=== PATIENT | male | born 1950 | race Two or more races ===

== ENCOUNTER 2017-04-21 09:37 | Inpatient (IN) | payer OTHER ==
[~2017-04-21] VITALS: Ht 165.1 cm; Wt 78.6 kg
[~2017-04-21 09:37] MED LIST: ATOR10TA OR; BUME2TAB3 PO; CARV6.2551 OR; FENO134C PO; LEVO100T8 OR; SPIR25TA89 PO; WARF2TAB49 PO; WARF5TAB PO
[2017-04-21 10:37] LABS: Basophils # (auto) 0.1 uL; Basophils % (auto) 0.9 % (0.0-2.0); DEFINITIVE VIEW TRANSMISSION; Eosinophils # (auto) 0.7 uL; Eosinophils % (auto) 9.2 % (0.0-7.0); Lymphocytes # (auto) 1.8 uL; Lymphocytes % (auto) 24.8 % (10.0-50.0); Mean Corpuscular Hemoglobin 26.5 pg (28.0-32.0); Mean Corpuscular Hgb Conc. 32.7 g/dL (32.0-36.0); Mean Corpuscular Volume 81.1 fL (80.0-100.0); Mean Platelet Volume 8.4 fL (7.4-10.4); Monocytes # (auto) 0.7 uL; Monocytes % (auto) 9.8 % (0.0-12.0); Neutrophils % (auto) 55.3 % (37.0-80.0); Platelet Count (auto) 234 10^3/uL (140-450); Red Cell Distribution Width 15.2 % (11.6-16.0); White Blood Cell 7.3 10^3/uL (4.4-10.8)
[2017-04-21 10:43] LABS: Partial Thromboplastin Time 36.6 sec (22.64-33.71)
[2017-04-21 10:46] LABS: INR 2.27 (0.9-1.15); Prothrombin Time 24.9 sec (9.37-12.3)
[2017-04-21 11:24] LABS: Calcium 8.3 mg/dL (8.5-10.1); Potassium 3.6 mmol/L (3.5-5.1)
[2017-04-21 11:26] LABS: Albumin 3.8 g/dL (3.4-5.0); BUN/Creatinine Ratio 12.8; Magnesium 2.2 mg/dL (1.6-2.6)
[2017-04-21 11:33] LABS: Bilirubin, Total 1.1 mg/dL (0.2-1.0); Total Protein 7.8 g/dL (6.4-8.2)
[2017-04-21] MEDS ORDERED: ENOXAPARIN SOD 80 MG/0.8ML SYRINGE SC ONE (12:15)
[2017-04-21 13:00] LABS: Temperature: 23.5 C (20.0-25.0)
[2017-04-21] MEDS ORDERED: LORazepam 0.5 MG TAB PO PRN (13:15)
[2017-04-21] MEDS ORDERED: PROMETHAZINE HCL 25 MG/ML 1ML IV PRN (13:15)
[2017-04-21] MEDS ORDERED: MORPHINE SULF INJ 2 MG/ML SYRINGE 1ML IV PRN ×2 (13:15)
[2017-04-21] MEDS ORDERED: HYDROcodone-ACET 5/325MG TAB PO PRN (13:15)
[2017-04-21] MEDS ORDERED: TEMAZEPAM 15 MG CAP PO PRN (13:15)
[2017-04-21] MEDS ORDERED: ASPirin 81 mg TAB PO ONE (13:15)
[2017-04-21] MEDS ORDERED: ACETAMINOPHEN 500 MG TAB PO PRN (13:15)
[2017-04-21] MEDS ORDERED: ENALAPRIL MALEATE 2.5 MG TAB PO ONE (13:15)
[2017-04-21] MEDS ORDERED: PANTOPRAZOLE 40 MG TAB PO ONE (13:15)
[2017-04-21] MEDS ORDERED: NITROGLYCERIN 0.4 MG SL TAB SL PRN (13:15)
[2017-04-21] MEDS ORDERED: LACTULOSE 20Gm/30ML SOLN PO PRN (13:15)
[2017-04-21] MEDS: SODIUM CHLORIDE 0.9% 1,000 ML IV SCH (13:33)
[2017-04-21 17:00] VITALS: BP 100/71
[2017-04-21] MEDS ORDERED: WARFARIN SODIUM 1 MG TAB PO ONE (17:00)
[2017-04-21 17:20] VITALS: BP 100/71
[2017-04-21] MEDS: CARVEDILOL 3.125 MG TAB PO SCH (21:37)
[2017-04-21] MEDS: ATORVASTATIN 20 MG TAB PO SCH (21:39)
[2017-04-21 22:00] VITALS: BP 100/66
[2017-04-22] MEDS: SODIUM CHLORIDE 0.9% 1,000 ML IV SCH (01:37)
[2017-04-22 05:00] VITALS: BP 94/63
[2017-04-22] MEDS: LEVOTHYROXINE SODIUM 100 MCG TAB PO SCH (06:07)
[2017-04-22 06:16] LABS: Partial Thromboplastin Time 38.5 sec (22.64-33.71)
[2017-04-22 06:17] LABS: INR 2.24 (0.9-1.15); Prothrombin Time 24.6 sec (9.37-12.3)
[2017-04-22 06:18] LABS: Potassium 3.4 mmol/L (3.5-5.1)
[2017-04-22 06:23] LABS: Albumin 3.3 g/dL (3.4-5.0); BUN/Creatinine Ratio 15.4; Calcium 8.3 mg/dL (8.5-10.1)
[2017-04-22 06:25] LABS: Total Protein 6.5 g/dL (6.4-8.2)
[2017-04-22 06:36] LABS: B-Type Natriuretic Peptide 870.31 pg/mL (0-100); Temperature: 22.3 C (20.0-25.0)
[2017-04-22 08:57] VITALS: BP 96/68
[2017-04-22] MEDS: ASPirin 81 mg TAB PO SCH (09:59)
[2017-04-22] MEDS: CARVEDILOL 3.125 MG TAB PO SCH ×2 (10:00→21:39)
[2017-04-22] MEDS ORDERED: BUMETANIDE (0.25MG/ML) 4 ML VIAL IV ONE (10:00)
[2017-04-22] MEDS: PANTOPRAZOLE 40 MG TAB PO SCH (10:00)
[2017-04-22] MEDS ORDERED: POTASSIUM CHL 20 Meq TABLET PO ONE (10:00)
[2017-04-22] MEDS ORDERED: ENALAPRIL MALEATE 2.5 MG TAB PO SCH (10:00)
[2017-04-22 13:41] VITALS: BP 119/84
[2017-04-22] MEDS ORDERED: WARFARIN SODIUM 1 MG TAB PO ONE (17:00)
[2017-04-22 17:27] VITALS: BP 100/69
[2017-04-22] MEDS: ATORVASTATIN 20 MG TAB PO SCH (21:43)
[2017-04-22 22:00] VITALS: BP 97/66
[2017-04-22] MEDS: TEMAZEPAM 15 MG CAP PO PRN (22:35)
[2017-04-23 05:00] VITALS: BP 104/69
[2017-04-23 05:56] LABS: Partial Thromboplastin Time 36.2 sec (22.64-33.71)
[2017-04-23 05:57] LABS: INR 2.09 (0.9-1.15)
[2017-04-23] MEDS: LEVOTHYROXINE SODIUM 100 MCG TAB PO SCH (06:14)
[2017-04-23 06:22] LABS: BUN/Creatinine Ratio 15.1; Calcium 8.5 mg/dL (8.5-10.1); Potassium 3.8 mmol/L (3.5-5.1)
[2017-04-23 09:00] VITALS: BP 103/70
[2017-04-23] MEDS ORDERED: BUMETANIDE 1 MG TAB PO ONE (10:15)
[2017-04-23] MEDS: PANTOPRAZOLE 40 MG TAB PO SCH (11:10)
[2017-04-23] MEDS: ASPirin 81 mg TAB PO SCH (11:10)
[2017-04-23] MEDS: CARVEDILOL 3.125 MG TAB PO SCH ×2 (11:10→21:43)
[2017-04-23 12:40] VITALS: BP 110/70
[2017-04-23] MEDS: DOBUTamine 1000MCG/ML 250 ML IV SCH ×2 (15:23→23:42)
[2017-04-23 16:22] VITALS: BP 109/54
[2017-04-23] MEDS ORDERED: WARFARIN SODIUM 1 MG TAB PO ONE (17:00)
[2017-04-23] MEDS: ATORVASTATIN 20 MG TAB PO SCH (21:43)
[2017-04-23] MEDS: TEMAZEPAM 15 MG CAP PO PRN (22:21)
[2017-04-23 22:59] VITALS: BP 100/69
[2017-04-24 05:00] VITALS: BP 92/54
[2017-04-24 05:22] LABS: Partial Thromboplastin Time 37.5 sec (22.64-33.71)
[2017-04-24 05:24] LABS: INR 2.05 (0.9-1.15); Prothrombin Time 22.5 sec (9.37-12.3)
[2017-04-24 05:28] LABS: BUN/Creatinine Ratio 16.1; Calcium 8.3 mg/dL (8.5-10.1); Potassium 3.1 mmol/L (3.5-5.1)
[2017-04-24] MEDS: LEVOTHYROXINE SODIUM 100 MCG TAB PO SCH (05:57)
[2017-04-24 09:00] VITALS: BP 105/71
[2017-04-24] MEDS ORDERED: ENALAPRIL MALEATE 2.5 MG TAB PO SCH (10:00)
[2017-04-24] MEDS: ASPirin 81 mg TAB PO SCH (10:32)
[2017-04-24] MEDS: PANTOPRAZOLE 40 MG TAB PO SCH (10:33)
[2017-04-24] MEDS: DOBUTamine 1000MCG/ML 250 ML IV SCH ×2 (10:33→21:17)
[2017-04-24] MEDS: BUMETANIDE 1 MG TAB PO SCH (10:33)
[2017-04-24] MEDS: CARVEDILOL 3.125 MG TAB PO SCH ×2 (10:33→21:23)
[2017-04-24] MEDS ORDERED: POTASSIUM CHL 20 Meq TABLET PO ONE (11:45)
[2017-04-24 13:00] VITALS: BP 93/69
[2017-04-24 16:39] VITALS: BP 96/64
[2017-04-24] MEDS ORDERED: WARFARIN SODIUM 2.5 MG TAB PO ONE (17:00)
[2017-04-24] MEDS: TEMAZEPAM 15 MG CAP PO PRN (21:24)
[2017-04-24] MEDS: ATORVASTATIN 20 MG TAB PO SCH (21:24)
[2017-04-24 22:00] VITALS: BP 101/68
[2017-04-25 05:00] VITALS: BP 104/74
[2017-04-25 06:03] LABS: Basophils # (auto) 0 uL; Basophils % (auto) 0.5 % (0.0-2.0); DEFINITIVE VIEW TRANSMISSION; Eosinophils # (auto) 0.4 uL; Eosinophils % (auto) 6.4 % (0.0-7.0); Hemoglobin 12.6 g/dL (13.5-17.5); Lymphocytes # (auto) 1.6 uL; Lymphocytes % (auto) 23.5 % (10.0-50.0); Mean Corpuscular Hemoglobin 26.6 pg (28.0-32.0); Mean Corpuscular Hgb Conc. 33.1 g/dL (32.0-36.0); Mean Corpuscular Volume 80.3 fL (80.0-100.0); Mean Platelet Volume 8.9 fL (7.4-10.4); Monocytes # (auto) 0.7 uL; Monocytes % (auto) 10.7 % (0.0-12.0); Neutrophils # (auto) 4.1 uL; Neutrophils % (auto) 58.9 % (37.0-80.0); Platelet Count (auto) 186 10^3/uL (140-450); Red Cell Distribution Width 15.7 % (11.6-16.0); White Blood Cell 6.9 10^3/uL (4.4-10.8)
[2017-04-25 06:18] LABS: Partial Thromboplastin Time 36.2 sec (22.64-33.71)
[2017-04-25 06:20] LABS: INR 2.02 (0.9-1.15); Prothrombin Time 22.2 sec (9.37-12.3)
[2017-04-25] MEDS: LEVOTHYROXINE SODIUM 100 MCG TAB PO SCH (06:21)
[2017-04-25 06:27] LABS: Albumin 3.1 g/dL (3.4-5.0); Calcium 8.4 mg/dL (8.5-10.1); Magnesium 2.1 mg/dL (1.6-2.6); Potassium 3.9 mmol/L (3.5-5.1)
[2017-04-25 06:43] LABS: Bilirubin, Total 0.8 mg/dL (0.2-1.0); Total Protein 6.4 g/dL (6.4-8.2)
[2017-04-25 08:26] VITALS: BP 109/74
[2017-04-25] MEDS: DOBUTamine 1000MCG/ML 250 ML IV SCH ×2 (09:44→19:56)
[2017-04-25] MEDS: CARVEDILOL 3.125 MG TAB PO SCH ×2 (10:34→22:12)
[2017-04-25] MEDS: ASPirin 81 mg TAB PO SCH (10:34)
[2017-04-25] MEDS: PANTOPRAZOLE 40 MG TAB PO SCH (10:36)
[2017-04-25] MEDS: BUMETANIDE 1 MG TAB PO SCH (10:37)
[2017-04-25 12:30] VITALS: BP 101/72
[2017-04-25] MEDS ORDERED: WARFARIN SODIUM 2 MG TAB PO ONE (17:00)
[2017-04-25 17:23] VITALS: BP 90/56
[2017-04-25 20:00] VITALS: BP 100/61
[2017-04-25 21:56] VITALS: BP 100/61
[2017-04-25] MEDS: ENALAPRIL MALEATE 2.5 MG TAB PO SCH (22:11)
[2017-04-25] MEDS: ATORVASTATIN 20 MG TAB PO SCH (22:12)
[2017-04-25] MEDS: TEMAZEPAM 15 MG CAP PO PRN (22:12)
[2017-04-26 05:25] VITALS: BP 96/69
[2017-04-26 05:54] LABS: Partial Thromboplastin Time 37.7 sec (22.64-33.71)
[2017-04-26 05:57] LABS: INR 2.54 (0.9-1.15); Prothrombin Time 27.9 sec (9.37-12.3)
[2017-04-26] MEDS: LEVOTHYROXINE SODIUM 100 MCG TAB PO SCH (06:14)
[2017-04-26] MEDS: DOBUTamine 1000MCG/ML 250 ML IV SCH ×3 (06:14→22:37)
[2017-04-26 08:00] VITALS: BP 96/65
[2017-04-26 09:42] VITALS: BP 94/64
[2017-04-26] MEDS: BUMETANIDE 1 MG TAB PO SCH (10:05)
[2017-04-26] MEDS: PANTOPRAZOLE 40 MG TAB PO SCH (10:06)
[2017-04-26] MEDS: ENALAPRIL MALEATE 2.5 MG TAB PO SCH ×2 (10:07→22:37)
[2017-04-26] MEDS: ASPirin 81 mg TAB PO SCH (10:08)
[2017-04-26] MEDS: CARVEDILOL 3.125 MG TAB PO SCH ×2 (10:08→22:36)
[2017-04-26 13:00] VITALS: BP 89/60
[2017-04-26] MEDS ORDERED: WARFARIN SODIUM 2 MG TAB PO ONE (17:00)
[2017-04-26 17:09] VITALS: BP 95/64
[2017-04-26 22:00] VITALS: BP 105/69
[2017-04-26] MEDS: ATORVASTATIN 20 MG TAB PO SCH (22:36)
[2017-04-26] MEDS: TEMAZEPAM 15 MG CAP PO PRN (22:38)
[2017-04-27 05:18] VITALS: BP 84/58
[2017-04-27] MEDS: LEVOTHYROXINE SODIUM 100 MCG TAB PO SCH (06:28)
[2017-04-27 06:36] LABS: Partial Thromboplastin Time 40.6 sec (22.64-33.71)
[2017-04-27 06:38] LABS: INR 3.47 (0.9-1.15); Prothrombin Time 38.3 sec (9.37-12.3)
[2017-04-27 06:39] LABS: Calcium 8.8 mg/dL (8.5-10.1); Potassium 3.7 mmol/L (3.5-5.1)
[2017-04-27 06:41] LABS: BUN/Creatinine Ratio 16.3
[2017-04-27] MEDS: BUMETANIDE 1 MG TAB PO SCH (09:29)
[2017-04-27] MEDS: CARVEDILOL 3.125 MG TAB PO SCH (09:30)
[2017-04-27] MEDS: ASPirin 81 mg TAB PO SCH (09:30)
[2017-04-27] MEDS: PANTOPRAZOLE 40 MG TAB PO SCH (09:31)
[2017-04-27 09:34] VITALS: BP 92/65
[2017-04-27] MEDS: ENALAPRIL MALEATE 2.5 MG TAB PO SCH (09:35)
[2017-04-27 12:54] VITALS: BP 90/64
[2017-04-27 14:15] VITALS: BP 90/64
== END 2017-04-27 14:00 | disposition home or self-care (01) | DRG 291 ==
LOC: ER 09:37 → TELE 09:38 → TELE-CENTR 16:48
PROVIDERS: ADMIT Internal Medicine; ATTEND Internal Medicine
DX: I13.0 Hypertensive heart and chronic kidney disease with heart failure and stage 1 through stage 4 chronic kidney disease, or unspecified chronic kidney disease (principal); I50.23 Acute on chronic systolic (congestive) heart failure; N17.9 Acute kidney failure, unspecified; I25.10 Atherosclerotic heart disease of native coronary artery without angina pectoris; N18.3 Chronic kidney disease, stage 3 (moderate); E78.5 Hyperlipidemia, unspecified; E03.9 Hypothyroidism, unspecified; I25.5 Ischemic cardiomyopathy; E86.0 Dehydration; Z80.0 Family history of malignant neoplasm of digestive organs; Z88.8 Allergy status to other drugs, medicaments and biological substances; I25.2 Old myocardial infarction; Z95.810 Presence of automatic (implantable) cardiac defibrillator; Z79.01 Long term (current) use of anticoagulants; Z71.89 Other specified counseling
CPT/HCPCS: 36415; 71020; 80048; 80053; 82150; 83690; 83735; 83880; 84443; 84484; 85025; 85379; 85610; 85730; 86141; 93005; 96372

== ENCOUNTER → 2017-06-17 | Outpatient (CLI) | payer OTHER ==
[2017-06-17 11:07] VITALS: BP 97/65
[2017-06-17 16:57] LABS: INR 2.2 (0.7-1.3); Prothrombin Time 26.2 sec (9.0-12.0)
== END | disposition home or self-care (01) ==
LOC: CHF HDHVI 10:39
PROVIDERS: ATTEND Internal Medicine Cardiovascular Disease
DX: I50.9 Heart failure, unspecified (principal); I48.91 Unspecified atrial fibrillation; E03.9 Hypothyroidism, unspecified
CPT/HCPCS: 85610; 93701; G0463

== ENCOUNTER → 2018-05-18 | Outpatient (CLI) | payer OTHER ==
[2018-05-18] VITALS (11 sets, daily range): BP systolic 85–95; BP diastolic 54–67
[~2018-05-18] MED LIST changes: +ATOR20TA50 PO; +BUM1T PO; +CARV3.1240 PO; +CHOL20007 PO; +IVAB1.7T PO; +LEVO88TA4 PO; +MILRINONE 20MG/100ML 100 ML IV ONE; +MILRINONE 20MG/100ML 100 ML IV SCH; +SACU1TAB PO; +WARF1TAB36 PO
[2018-05-18 12:11] LABS: Hemoglobin 15.2 g/dL (13.5-17.5); Mean Corpuscular Hemoglobin 27.1 pg (28.0-32.0); Mean Corpuscular Volume 82.1 fL (80.0-100.0); Platelet Count (auto) 228 10^3/uL (140-450); Red Cell Distribution Width 14.6 % (11.8-14.3); White Blood Cell 5.3 10^3/uL (4.4-10.8)
[2018-05-18 12:31] LABS: BUN/Creatinine Ratio 17.6; Calcium 8.5 mg/dL (8.5-10.1); Potassium 3.7 mmol/L (3.5-5.1)
[2018-05-18 12:44] LABS: Band Neutrophils % (manual) 0; Basophils % (manual) 0 (0.0-2.0); Blast Cells 0; Metamyelocytes % 0; Myelocytes % 0; Promyelocytes % 0
[2018-05-18 13:14] LABS: Eosinophils % (manual) 5 (0-7); Lymphocytes % (manual) 39 (10.0-50.0); Monocytes % (manual) 10 (0-12); Reactive Lymphocytes 1
== END | disposition home or self-care (01) ==
LOC: CHF HDHVI 08:05
PROVIDERS: ATTEND Internal Medicine Cardiovascular Disease
DX: I13.0 Hypertensive heart and chronic kidney disease with heart failure and stage 1 through stage 4 chronic kidney disease, or unspecified chronic kidney disease (principal); I50.23 Acute on chronic systolic (congestive) heart failure; N18.3 Chronic kidney disease, stage 3 (moderate); D51.9 Vitamin B12 deficiency anemia, unspecified; I42.0 Dilated cardiomyopathy; E87.70 Fluid overload, unspecified; E87.6 Hypokalemia; E03.9 Hypothyroidism, unspecified; E78.5 Hyperlipidemia, unspecified; I48.91 Unspecified atrial fibrillation; I25.10 Atherosclerotic heart disease of native coronary artery without angina pectoris; Z79.01 Long term (current) use of anticoagulants; Z79.899 Other long term (current) drug therapy; Z95.810 Presence of automatic (implantable) cardiac defibrillator
CPT/HCPCS: 36415; 80048; 83880; 85007; 85027; 85610; 96365; 96366; G0463; J2260

== ENCOUNTER → 2018-05-29 | Outpatient (CLI) | payer OTHER ==
[2018-05-29] VITALS (11 sets, daily range): BP systolic 81–96; BP diastolic 51–68
[~2018-05-29] MED LIST changes: +ALPR0.5T PO; +POTA20TA53 PO; +POTA95TA2 PO; +SPIR25TA8 PO; -SPIR25TA89 PO
[2018-05-29 12:58] LABS: Potassium 3.7 mmol/L (3.5-5.1)
== END | disposition home or self-care (01) ==
LOC: CHF HDHVI 08:10
PROVIDERS: ATTEND Internal Medicine Cardiovascular Disease
DX: I13.0 Hypertensive heart and chronic kidney disease with heart failure and stage 1 through stage 4 chronic kidney disease, or unspecified chronic kidney disease (principal); I50.23 Acute on chronic systolic (congestive) heart failure; N18.3 Chronic kidney disease, stage 3 (moderate); E87.70 Fluid overload, unspecified; D51.9 Vitamin B12 deficiency anemia, unspecified; I25.10 Atherosclerotic heart disease of native coronary artery without angina pectoris; I48.91 Unspecified atrial fibrillation; E78.5 Hyperlipidemia, unspecified; E03.9 Hypothyroidism, unspecified; Z79.01 Long term (current) use of anticoagulants; Z79.899 Other long term (current) drug therapy; Z95.810 Presence of automatic (implantable) cardiac defibrillator; Z87.891 Personal history of nicotine dependence
CPT/HCPCS: 36415; 82565; 83880; 84132; 84520; 85610; 96365; 96366; G0463; J2260

== ENCOUNTER → 2018-06-01 | Outpatient (CLI) | payer OTHER ==
[2018-06-01] VITALS (12 sets, daily range): BP systolic 85–95; BP diastolic 51–64
[~2018-06-01] MED LIST changes: +DOBUTamine 1000MCG/ML 250 ML IV ONE; -MILRINONE 20MG/100ML 100 ML IV ONE; -MILRINONE 20MG/100ML 100 ML IV SCH; -SPIR25TA8 PO; +SPIR25TA89 PO
[2018-06-01 11:59] LABS: Potassium 3.6 mmol/L (3.5-5.1)
== END | disposition home or self-care (01) ==
LOC: CHF HDHVI 08:06
PROVIDERS: ATTEND Internal Medicine Cardiovascular Disease
DX: I13.0 Hypertensive heart and chronic kidney disease with heart failure and stage 1 through stage 4 chronic kidney disease, or unspecified chronic kidney disease (principal); I50.43 Acute on chronic combined systolic (congestive) and diastolic (congestive) heart failure; N18.3 Chronic kidney disease, stage 3 (moderate); R94.4 Abnormal results of kidney function studies; E87.6 Hypokalemia; I48.91 Unspecified atrial fibrillation; I25.110 Atherosclerotic heart disease of native coronary artery with unstable angina pectoris; E78.5 Hyperlipidemia, unspecified; E03.9 Hypothyroidism, unspecified; Z79.01 Long term (current) use of anticoagulants; Z79.899 Other long term (current) drug therapy; Z87.891 Personal history of nicotine dependence; Z95.810 Presence of automatic (implantable) cardiac defibrillator
CPT/HCPCS: 36415; 82565; 83880; 84132; 84520; 96365; 96366; G0463; J1250

== ENCOUNTER → 2018-06-05 | Outpatient (CLI) | payer OTHER ==
[2018-06-05] VITALS (7 sets, daily range): BP systolic 93–106; BP diastolic 59–68
[~2018-06-05] MED LIST changes: +MILRINONE 20MG/100ML 0 ML IV ONE; +SPIR25TA8 PO; -SPIR25TA89 PO
[2018-06-05 12:21] LABS: Potassium 3.9 mmol/L (3.5-5.1)
== END | disposition home or self-care (01) ==
LOC: CHF HDHVI 08:11
PROVIDERS: ATTEND Internal Medicine Cardiovascular Disease
DX: E87.6 Hypokalemia (principal); R94.4 Abnormal results of kidney function studies; I50.23 Acute on chronic systolic (congestive) heart failure
CPT/HCPCS: 36415; 82565; 83880; 84132; 84520; 96365; 96366; G0463; J1250

== ENCOUNTER → 2018-06-12 | Outpatient (CLI) | payer OTHER ==
[2018-06-12] VITALS (9 sets, daily range): BP systolic 93–105; BP diastolic 58–67
[~2018-06-12] MED LIST changes: -MILRINONE 20MG/100ML 0 ML IV ONE
[2018-06-12 12:19] LABS: Basophils # (auto) 0.1 uL; Basophils % (auto) 1.3 % (0.0-2.0); Eosinophils # (auto) 0.4 uL; Eosinophils % (auto) 7.7 % (0.0-7.0); Hematocrit 44.7 % (41.0-53.0); Hemoglobin 15.1 g/dL (13.5-17.5); Mean Corpuscular Hemoglobin 27.9 pg (28.0-32.0); Mean Corpuscular Hgb Conc. 33.7 g/dL (32.0-36.0); Mean Corpuscular Volume 82.9 fL (80.0-100.0); Monocytes # (auto) 0.5 uL; Monocytes % (auto) 9.8 % (0.0-12.0); Neutrophils # (auto) 3.1 uL; Neutrophils % (auto) 61.2 % (37.0-80.0); Nucleated Red Blood Cells % 0.6 %; Platelet Count (auto) 189 10^3/uL (140-450); Red Blood Cells 5.39 10^6/uL (4.5-5.90); Red Cell Distribution Width 15.1 % (11.8-14.3); White Blood Cell 5.1 10^3/uL (4.4-10.8)
[2018-06-12 12:35] LABS: BUN/Creatinine Ratio 18.5; Calcium 8.6 mg/dL (8.5-10.1); Magnesium 1.9 mg/dL (1.6-2.6)
[2018-06-12 13:20] LABS: Potassium 2.7 mmol/L (3.5-5.1)
== END | disposition home or self-care (01) ==
LOC: CHF HDHVI 08:00
PROVIDERS: ATTEND Internal Medicine Cardiovascular Disease
DX: I50.23 Acute on chronic systolic (congestive) heart failure (principal); E83.40 Disorders of magnesium metabolism, unspecified; D51.9 Vitamin B12 deficiency anemia, unspecified; D64.9 Anemia, unspecified
CPT/HCPCS: 36415; 80048; 82607; 83735; 83880; 85025; 85610; 96365; 96366; G0463; J1250

== ENCOUNTER → 2018-06-14 | Outpatient (CLI) | payer OTHER ==
[~2018-06-14] VITALS: Ht 30.5 cm; Wt 0.5 kg
[~2018-06-14] MED LIST changes: -DOBUTamine 1000MCG/ML 250 ML IV ONE; +LIDOCAINE 1% (LOCAL ANESTH.) PF 5ml SDV ID ONE; +SODIUM CHLOR 0.9% PF (SALINE LOCK) 10ML VIAL/SYR IV SCH; -SPIR25TA8 PO; +SPIR25TA89 PO
== END | disposition home or self-care (01) ==
LOC: XYW 13:39
PROVIDERS: ATTEND Internal Medicine Cardiovascular Disease
DX: Z45.2 Encounter for adjustment and management of vascular access device (principal); I50.9 Heart failure, unspecified; J98.9 Respiratory disorder, unspecified; Z87.891 Personal history of nicotine dependence; Z82.3 Family history of stroke; Z82.5 Family history of asthma and other chronic lower respiratory diseases; Z80.0 Family history of malignant neoplasm of digestive organs; Z82.61 Family history of arthritis; Z88.8 Allergy status to other drugs, medicaments and biological substances
CPT/HCPCS: 36569; 71045

== ENCOUNTER → 2018-06-14 | Outpatient (CLI) | payer OTHER ==
[~2018-06-14] MED LIST changes: -LIDOCAINE 1% (LOCAL ANESTH.) PF 5ml SDV ID ONE; -SODIUM CHLOR 0.9% PF (SALINE LOCK) 10ML VIAL/SYR IV SCH
== END | disposition home or self-care (01) ==
LOC: LAB 13:10
PROVIDERS: ATTEND Internal Medicine Cardiovascular Disease
DX: R79.1 Abnormal coagulation profile (principal); I13.0 Hypertensive heart and chronic kidney disease with heart failure and stage 1 through stage 4 chronic kidney disease, or unspecified chronic kidney disease; N18.3 Chronic kidney disease, stage 3 (moderate); I50.23 Acute on chronic systolic (congestive) heart failure; E03.9 Hypothyroidism, unspecified; E78.5 Hyperlipidemia, unspecified
CPT/HCPCS: 85610

== ENCOUNTER → 2018-06-15 | Outpatient (CLI) | payer OTHER ==
[~2018-06-15] VITALS: Ht 30.5 cm; Wt 72.3 kg
[2018-06-15] VITALS (7 sets, daily range): BP systolic 91–109; BP diastolic 57–73
[~2018-06-15] MED LIST changes: +DOBUTamine 1000MCG/ML 250 ML IV ONE; +DOBUTamine 1000MCG/ML 250 ML IV SCH; +SPIR25TA8 PO; -SPIR25TA89 PO
[2018-06-15 12:57] LABS: Potassium 3.5 mmol/L (3.5-5.1)
[2018-06-15 16:11] LABS: Hepatitis B Surface Antibody Negative
[2018-06-15 16:50] LABS: Hepatitis A Total Antibody Positive
[2018-06-20 15:36] LABS: Hepatitis B Core Total AB Negative; Hepatitis C Antibody Negative (Negative)
[2018-06-22 22:03] LABS: Hepatitis B Surface Antigen Negative (Negative)
== END | disposition home or self-care (01) ==
LOC: CHF HDHVI 10:18
PROVIDERS: ATTEND Internal Medicine Cardiovascular Disease
DX: I13.0 Hypertensive heart and chronic kidney disease with heart failure and stage 1 through stage 4 chronic kidney disease, or unspecified chronic kidney disease (principal); N18.3 Chronic kidney disease, stage 3 (moderate); I50.23 Acute on chronic systolic (congestive) heart failure; R94.4 Abnormal results of kidney function studies; E87.6 Hypokalemia; I25.709 Atherosclerosis of coronary artery bypass graft(s), unspecified, with unspecified angina pectoris; E78.5 Hyperlipidemia, unspecified; E03.9 Hypothyroidism, unspecified; I48.91 Unspecified atrial fibrillation; Z94.1 Heart transplant status; Z87.891 Personal history of nicotine dependence; Z79.01 Long term (current) use of anticoagulants; Z79.899 Other long term (current) drug therapy; Z95.810 Presence of automatic (implantable) cardiac defibrillator
CPT/HCPCS: 36415; 82565; 83880; 84132; 84520; 86703; 86704; 86706; 86708; 86803; 87340; 96365; 96366; G0463; J1250; J1642

== ENCOUNTER → 2018-06-19 | Outpatient (CLI) | payer OTHER ==
[2018-06-19] VITALS (10 sets, daily range): BP systolic 82–96; BP diastolic 55–62
[~2018-06-19] MED LIST changes: +BUMETANIDE (0.25MG/ML) 4 ML VIAL IV ONE; +BUMETANIDE (0.25MG/ML) 4 ML VIAL ONE; +DOBUTamine 1000MCG/ML 0 ML IV ONE; -DOBUTamine 1000MCG/ML 250 ML IV ONE; -DOBUTamine 1000MCG/ML 250 ML IV SCH; +MILRINONE 20MG/100ML 0 ML IV ONE; +MILRINONE 20MG/100ML 100 ML IV ONE; +MILRINONE 20MG/100ML 100 ML IV SCH
[2018-06-19 10:02] LABS: Potassium 3.3 mmol/L (3.5-5.1)
[2018-06-20 09:01] LABS: Protein, Urine 7.6 mg/dL (0.0-11.9)
[2018-06-20 09:32] LABS: 24 Hr. Total Protein, Urine 125.4 mg/24 Hr (<149.1); Creatinine Clearance, Urine 35.42 mL/min (75-115)
== END | disposition home or self-care (01) ==
LOC: CHF HDHVI 07:59
PROVIDERS: ATTEND Internal Medicine Cardiovascular Disease
DX: E87.6 Hypokalemia (principal); R94.4 Abnormal results of kidney function studies; Z94.1 Heart transplant status; I50.23 Acute on chronic systolic (congestive) heart failure
CPT/HCPCS: 36415; 82565; 82575; 83880; 84132; 84156; 84520; 86850; 86900; 86901; 93005; 96365; 96366; 96375; G0463; J1642; J2260; J3490

== ENCOUNTER → 2018-06-21 | Outpatient (CLI) | payer OTHER ==
[2018-06-21] VITALS (10 sets, daily range): BP systolic 77–93; BP diastolic 53–70
[~2018-06-21] MED LIST changes: -BUMETANIDE (0.25MG/ML) 4 ML VIAL IV ONE; -BUMETANIDE (0.25MG/ML) 4 ML VIAL ONE; -DOBUTamine 1000MCG/ML 0 ML IV ONE; +DOBUTamine 1000MCG/ML 250 ML IV ONE; -MILRINONE 20MG/100ML 0 ML IV ONE; -MILRINONE 20MG/100ML 100 ML IV ONE; -MILRINONE 20MG/100ML 100 ML IV SCH; +SODIUM CHLORIDE 0.9% 250 ML IV ONE
[2018-06-21 12:46] LABS: Potassium 3.8 mmol/L (3.5-5.1)
== END | disposition home or self-care (01) ==
LOC: Rad HDHVI 08:03
PROVIDERS: ATTEND Internal Medicine Cardiovascular Disease
DX: I13.0 Hypertensive heart and chronic kidney disease with heart failure and stage 1 through stage 4 chronic kidney disease, or unspecified chronic kidney disease (principal); R94.4 Abnormal results of kidney function studies; N18.3 Chronic kidney disease, stage 3 (moderate); I50.43 Acute on chronic combined systolic (congestive) and diastolic (congestive) heart failure; E03.9 Hypothyroidism, unspecified; E87.6 Hypokalemia; I95.9 Hypotension, unspecified; R07.9 Chest pain, unspecified; E78.5 Hyperlipidemia, unspecified; I48.91 Unspecified atrial fibrillation; I25.110 Atherosclerotic heart disease of native coronary artery with unstable angina pectoris; Z95.810 Presence of automatic (implantable) cardiac defibrillator; Z79.01 Long term (current) use of anticoagulants; Z87.891 Personal history of nicotine dependence
CPT/HCPCS: 36415; 71046; 82565; 83880; 84132; 84520; 96365; 96366; G0463; J1250; J7050; 96361; J1642

== ENCOUNTER → 2018-06-23 | Outpatient (CLI) | payer OTHER ==
[2018-06-23] VITALS (9 sets, daily range): BP systolic 82–91; BP diastolic 55–71
[~2018-06-23] VITALS: Ht 30.5 cm; Wt 73.3 kg
[~2018-06-23] MED LIST changes: +BUMETANIDE (0.25MG/ML) 4 ML VIAL IV ONE; +BUMETANIDE (0.25MG/ML) 4 ML VIAL ONE; -SODIUM CHLORIDE 0.9% 250 ML IV ONE
== END | disposition home or self-care (01) ==
LOC: CHF HDHVI 08:06
PROVIDERS: ATTEND Internal Medicine Cardiovascular Disease
DX: I13.0 Hypertensive heart and chronic kidney disease with heart failure and stage 1 through stage 4 chronic kidney disease, or unspecified chronic kidney disease (principal); I50.43 Acute on chronic combined systolic (congestive) and diastolic (congestive) heart failure; N18.3 Chronic kidney disease, stage 3 (moderate); I48.91 Unspecified atrial fibrillation; I25.110 Atherosclerotic heart disease of native coronary artery with unstable angina pectoris; E78.5 Hyperlipidemia, unspecified; E03.9 Hypothyroidism, unspecified; Z79.01 Long term (current) use of anticoagulants; Z79.899 Other long term (current) drug therapy; Z95.810 Presence of automatic (implantable) cardiac defibrillator; Z87.891 Personal history of nicotine dependence; Z98.61 Coronary angioplasty status
CPT/HCPCS: 96365; 96366; 96375; G0463; J1250; J1642; J3490

== ENCOUNTER → 2018-06-26 | Outpatient (CLI) | payer OTHER ==
[~2018-06-26] VITALS: Ht 30.5 cm; Wt 73.5 kg
[2018-06-26] VITALS (8 sets, daily range): BP systolic 89–96; BP diastolic 60–68
[~2018-06-26] MED LIST changes: -BUMETANIDE (0.25MG/ML) 4 ML VIAL IV ONE; -BUMETANIDE (0.25MG/ML) 4 ML VIAL ONE; +DOBUTamine 1000MCG/ML 100 ML IV ONE
== END | disposition home or self-care (01) ==
LOC: CHF HDHVI 08:19
PROVIDERS: ATTEND Internal Medicine Cardiovascular Disease
DX: I13.0 Hypertensive heart and chronic kidney disease with heart failure and stage 1 through stage 4 chronic kidney disease, or unspecified chronic kidney disease (principal); N18.3 Chronic kidney disease, stage 3 (moderate); I50.43 Acute on chronic combined systolic (congestive) and diastolic (congestive) heart failure; E78.5 Hyperlipidemia, unspecified; E03.9 Hypothyroidism, unspecified; I48.91 Unspecified atrial fibrillation; I25.119 Atherosclerotic heart disease of native coronary artery with unspecified angina pectoris; Z79.01 Long term (current) use of anticoagulants; Z87.891 Personal history of nicotine dependence; Z95.810 Presence of automatic (implantable) cardiac defibrillator; Z94.1 Heart transplant status; Z79.899 Other long term (current) drug therapy
CPT/HCPCS: 96365; 96366; G0463; J1250; J1642

== ENCOUNTER 2018-06-27 23:12 | Emergency (ER) | payer OTHER ==
[~2018-06-27] VITALS: Ht 165.1 cm; Wt 73.3 kg
[~2018-06-27 23:12] MED LIST changes: -ALPR0.5T PO; -DOBUTamine 1000MCG/ML 100 ML IV ONE; -DOBUTamine 1000MCG/ML 250 ML IV ONE; -POTA20TA53 PO; -POTA95TA2 PO; -SPIR25TA8 PO; +SPIR25TA89 PO
[2018-06-28 00:34] LABS: Eosinophils # (auto) 0.4 uL; Hemoglobin 14.1 g/dL (13.5-17.5); Nucleated Red Blood Cells % 0.1 %
[2018-06-28 00:35] LABS: Basophils # (auto) 0 uL; Basophils % (auto) 0.7 % (0.0-2.0); Eosinophils % (auto) 6.7 % (0.0-7.0); Hematocrit 43.6 % (41.0-53.0); Lymphocytes # (auto) 1.4 uL; Lymphocytes % (auto) 24.7 % (10.0-50.0); Mean Corpuscular Hemoglobin 26.4 pg (28.0-32.0); Mean Corpuscular Hgb Conc. 32.4 g/dL (32.0-36.0); Mean Corpuscular Volume 81.4 fL (80.0-100.0); Monocytes # (auto) 0.6 uL; Monocytes % (auto) 11.4 % (0.0-12.0); Neutrophils # (auto) 3.2 uL; Neutrophils % (auto) 56.5 % (37.0-80.0); Platelet Count (auto) 193 10^3/uL (140-450); Red Blood Cells 5.35 10^6/uL (4.5-5.90); White Blood Cell 5.7 10^3/uL (4.4-10.8)
[2018-06-28 00:49] LABS: INR 3.1 (0.9-1.15); Partial Thromboplastin Time 34.5 sec (23.78-33.04); Prothrombin Time 31.1 sec (9.27-12.13)
[2018-06-28 00:50] LABS: Albumin 3.2 g/dL (3.4-5.0); BUN/Creatinine Ratio 17.8; Calcium 8.3 mg/dL (8.5-10.1); Magnesium 2.2 mg/dL (1.6-2.6); Potassium 3.4 mmol/L (3.5-5.1)
[2018-06-28 00:55] LABS: Bilirubin, Total 0.9 mg/dL (0.2-1.0); Total Protein 6.5 g/dL (6.4-8.2)
[2018-06-28 01:23] VITALS: BP 93/65
[2018-07-07] MEDS ORDERED: POTA95TA2 PO (14:50)
[2018-07-07] MEDS ORDERED: POTA20TA53 PO (14:50)
== END 2018-06-28 03:08 | disposition left against medical advice (07) ==
LOC: ER 23:14
DX: R06.02 Shortness of breath (principal); Z53.21 Procedure and treatment not carried out due to patient leaving prior to being seen by health care provider
CPT/HCPCS: 36415; 71045; 80053; 83735; 83880; 84484; 85025; 85379; 85610; 85730; 93005

== ENCOUNTER → 2018-06-28 | Outpatient (CLI) | payer OTHER ==
[~2018-06-28] VITALS: Ht 30.5 cm; Wt 73.0 kg
[~2018-06-28] MED LIST changes: +ALPR0.5T PO; +BUMETANIDE (0.25MG/ML) 4 ML VIAL IV ONE; +BUMETANIDE (0.25MG/ML) 4 ML VIAL ONE; +DOBUTamine 1000MCG/ML 250 ML IV ONE; +POTA20TA53 PO; +POTA95TA2 PO; +POTASSIUM CHL 10 Meq TABLET PO ONE; +POTASSIUM CHL 20 Meq TABLET PO ONE; +SPIR25TA8 PO; -SPIR25TA89 PO
[2018-06-28 14:58] VITALS: BP 98/62
[2018-06-29] VITALS (8 sets, daily range): BP systolic 81–93; BP diastolic 59–68
== END | disposition home or self-care (01) ==
LOC: CHF HDHVI 07:56
PROVIDERS: ATTEND Internal Medicine Cardiovascular Disease
DX: I25.110 Atherosclerotic heart disease of native coronary artery with unstable angina pectoris (principal); I13.0 Hypertensive heart and chronic kidney disease with heart failure and stage 1 through stage 4 chronic kidney disease, or unspecified chronic kidney disease; N18.3 Chronic kidney disease, stage 3 (moderate); I50.43 Acute on chronic combined systolic (congestive) and diastolic (congestive) heart failure; R53.83 Other fatigue; I48.91 Unspecified atrial fibrillation; E78.5 Hyperlipidemia, unspecified; E03.9 Hypothyroidism, unspecified; Z79.01 Long term (current) use of anticoagulants; Z79.899 Other long term (current) drug therapy; Z87.891 Personal history of nicotine dependence; Z95.810 Presence of automatic (implantable) cardiac defibrillator; Z94.1 Heart transplant status
CPT/HCPCS: 36415; 83880; 84484; 93005; 93701; 96365; 96366; 96375; 96376; G0463; J1250; J1642; J3490

== ENCOUNTER → 2018-06-29 | Outpatient (CLI) | payer OTHER ==
[~2018-06-29] MED LIST changes: -POTASSIUM CHL 10 Meq TABLET PO ONE; -POTASSIUM CHL 20 Meq TABLET PO ONE
[2018-06-29 08:45] VITALS: BP 89/63
[2018-06-29 09:00] VITALS: BP 91/66
[2018-06-29 09:02] LABS: Basophils # (auto) 0.1 uL; Eosinophils # (auto) 0.4 uL; Lymphocytes # (auto) 1.2 uL; Monocytes # (auto) 0.6 uL; Neutrophils # (auto) 3.6 uL; White Blood Cell 5.9 10^3/uL (4.4-10.8)
[2018-06-29 09:04] LABS: Basophils % (auto) 1.4 % (0.0-2.0); Eosinophils % (auto) 7.6 % (0.0-7.0); Hematocrit 42.6 % (41.0-53.0); Hemoglobin 13.8 g/dL (13.5-17.5); Lymphocytes % (auto) 19.9 % (10.0-50.0); Mean Corpuscular Hemoglobin 26.5 pg (28.0-32.0); Mean Corpuscular Hgb Conc. 32.5 g/dL (32.0-36.0); Mean Corpuscular Volume 81.6 fL (80.0-100.0); Monocytes % (auto) 10.5 % (0.0-12.0); Neutrophils % (auto) 60.6 % (37.0-80.0); Platelet Count (auto) 194 10^3/uL (140-450); Red Blood Cells 5.21 10^6/uL (4.5-5.90); Red Cell Distribution Width 15.1 % (11.8-14.3)
[2018-06-29 09:32] LABS: Calcium 8.3 mg/dL (8.5-10.1); Magnesium 2.1 mg/dL (1.6-2.6); Potassium 3.6 mmol/L (3.5-5.1)
[2018-06-29 12:30] VITALS: BP 93/65
== END | disposition home or self-care (01) ==
LOC: CHF HDHVI 07:53
PROVIDERS: ATTEND Internal Medicine Cardiovascular Disease
DX: I13.0 Hypertensive heart and chronic kidney disease with heart failure and stage 1 through stage 4 chronic kidney disease, or unspecified chronic kidney disease (principal); N18.3 Chronic kidney disease, stage 3 (moderate); I50.43 Acute on chronic combined systolic (congestive) and diastolic (congestive) heart failure; I48.91 Unspecified atrial fibrillation; E87.70 Fluid overload, unspecified; R53.83 Other fatigue; E83.40 Disorders of magnesium metabolism, unspecified; D64.9 Anemia, unspecified; E03.9 Hypothyroidism, unspecified; I25.119 Atherosclerotic heart disease of native coronary artery with unspecified angina pectoris; E78.5 Hyperlipidemia, unspecified; Z95.810 Presence of automatic (implantable) cardiac defibrillator; Z79.01 Long term (current) use of anticoagulants; Z79.899 Other long term (current) drug therapy; Z87.891 Personal history of nicotine dependence; Z95.5 Presence of coronary angioplasty implant and graft
CPT/HCPCS: 36415; 80048; 83735; 83880; 85025; 93701; 96365; 96366; 96375; 96376; G0463; J1250; J1642; J3490

== ENCOUNTER → 2018-06-30 | Outpatient (CLI) | payer OTHER ==
[2018-06-30] VITALS (10 sets, daily range): BP systolic 85–101; BP diastolic 54–68
[~2018-06-30] VITALS: Ht 30.5 cm; Wt 0.5 kg
[~2018-06-30] MED LIST changes: +ALBUMIN 25% 100 ML IV ONE; +ALBUMIN 25% 50 ML IV ONE; +POTASSIUM CHL 20 Meq TABLET PO ONE
[2018-06-30 09:03] LABS: Potassium 3.3 mmol/L (3.5-5.1)
== END | disposition home or self-care (01) ==
LOC: CHF HDHVI 07:51
PROVIDERS: ATTEND Internal Medicine Cardiovascular Disease
DX: I13.0 Hypertensive heart and chronic kidney disease with heart failure and stage 1 through stage 4 chronic kidney disease, or unspecified chronic kidney disease (principal); N18.3 Chronic kidney disease, stage 3 (moderate); I50.43 Acute on chronic combined systolic (congestive) and diastolic (congestive) heart failure; I48.91 Unspecified atrial fibrillation; R94.4 Abnormal results of kidney function studies; E87.6 Hypokalemia; I25.110 Atherosclerotic heart disease of native coronary artery with unstable angina pectoris; E78.5 Hyperlipidemia, unspecified; E03.9 Hypothyroidism, unspecified; Z79.01 Long term (current) use of anticoagulants; Z87.891 Personal history of nicotine dependence; Z95.810 Presence of automatic (implantable) cardiac defibrillator
CPT/HCPCS: 36415; 82565; 83880; 84132; 84520; 93005; 96365; 96366; 96368; G0463; J1250; J1642; J3490; P9047; 96367; 96375

== ENCOUNTER → 2018-07-03 | Outpatient (CLI) | payer OTHER ==
[2018-07-03] VITALS (8 sets, daily range): BP systolic 87–119; BP diastolic 52–64
[~2018-07-03] VITALS: Ht 1 cm; Wt 0.5 kg
[~2018-07-03] MED LIST changes: +ALBUMIN 25% 0 ML IV ONE; -ALBUMIN 25% 100 ML IV ONE; -ALBUMIN 25% 50 ML IV ONE; -POTASSIUM CHL 20 Meq TABLET PO ONE
[2018-07-03 09:19] LABS: Eosinophils # (auto) 0.4 uL; Eosinophils % (auto) 6.3 % (0.0-7.0); Lymphocytes # (auto) 1.2 uL; Mean Corpuscular Hemoglobin 26.6 pg (28.0-32.0); Mean Corpuscular Volume 81.6 fL (80.0-100.0); Nucleated Red Blood Cells % 0.2 %
[2018-07-03 09:20] LABS: Basophils # (auto) 0 uL; Basophils % (auto) 0.7 % (0.0-2.0); Hematocrit 43.9 % (41.0-53.0); Hemoglobin 14.3 g/dL (13.5-17.5); Mean Corpuscular Hgb Conc. 32.6 g/dL (32.0-36.0); Monocytes # (auto) 0.6 uL; Monocytes % (auto) 9.7 % (0.0-12.0); Neutrophils # (auto) 4.3 uL; Neutrophils % (auto) 65.3 % (37.0-80.0); Platelet Count (auto) 221 10^3/uL (140-450); Red Blood Cells 5.38 10^6/uL (4.5-5.90); White Blood Cell 6.5 10^3/uL (4.4-10.8)
[2018-07-03 09:32] LABS: Albumin 3.4 g/dL (3.4-5.0); BUN/Creatinine Ratio 20.1; Calcium 8.9 mg/dL (8.5-10.1); Potassium 3.7 mmol/L (3.5-5.1)
[2018-07-03 09:34] LABS: Bilirubin, Total 1.2 mg/dL (0.2-1.0); Total Protein 6.7 g/dL (6.4-8.2)
== END | disposition home or self-care (01) ==
LOC: CHF HDHVI 08:08
PROVIDERS: ATTEND Internal Medicine Cardiovascular Disease
DX: I13.0 Hypertensive heart and chronic kidney disease with heart failure and stage 1 through stage 4 chronic kidney disease, or unspecified chronic kidney disease (principal); N18.3 Chronic kidney disease, stage 3 (moderate); I50.43 Acute on chronic combined systolic (congestive) and diastolic (congestive) heart failure; D64.9 Anemia, unspecified; R74.0 Nonspecific elevation of levels of transaminase and lactic acid dehydrogenase [LDH]; I48.91 Unspecified atrial fibrillation; E03.9 Hypothyroidism, unspecified; I25.110 Atherosclerotic heart disease of native coronary artery with unstable angina pectoris; E78.5 Hyperlipidemia, unspecified; Z95.810 Presence of automatic (implantable) cardiac defibrillator; Z79.01 Long term (current) use of anticoagulants; Z79.899 Other long term (current) drug therapy; Z87.891 Personal history of nicotine dependence; Z98.61 Coronary angioplasty status
CPT/HCPCS: 36415; 80053; 83880; 85025; 96365; 96366; 96375; G0463; J1250; J1642; J3490; P9047

== ENCOUNTER → 2018-07-04 | Outpatient (CLI) | payer OTHER ==
[2018-07-04] VITALS (8 sets, daily range): BP systolic 87–100; BP diastolic 59–70
[~2018-07-04] MED LIST changes: -ALBUMIN 25% 0 ML IV ONE; -BUMETANIDE (0.25MG/ML) 4 ML VIAL ONE; +BUMETANIDE INJECTION 10 ML ONE; -DOBUTamine 1000MCG/ML 250 ML IV ONE; +MILRINONE 20MG/100ML 100 ML IV ONE; +MILRINONE 20MG/100ML 100 ML IV SCH
[2018-07-04 09:30] LABS: Potassium 3.5 mmol/L (3.5-5.1)
== END | disposition home or self-care (01) ==
LOC: CHF HDHVI 07:58
PROVIDERS: ATTEND Internal Medicine Cardiovascular Disease
DX: I13.0 Hypertensive heart and chronic kidney disease with heart failure and stage 1 through stage 4 chronic kidney disease, or unspecified chronic kidney disease (principal); N18.3 Chronic kidney disease, stage 3 (moderate); I50.43 Acute on chronic combined systolic (congestive) and diastolic (congestive) heart failure; I48.91 Unspecified atrial fibrillation; R94.4 Abnormal results of kidney function studies; E87.6 Hypokalemia; I25.110 Atherosclerotic heart disease of native coronary artery with unstable angina pectoris; E78.5 Hyperlipidemia, unspecified; E03.9 Hypothyroidism, unspecified; Z79.01 Long term (current) use of anticoagulants; Z95.810 Presence of automatic (implantable) cardiac defibrillator
CPT/HCPCS: 36415; 82565; 83880; 84132; 84520; 96365; 96366; 96375; 96376; G0463; J1642; J2260

== ENCOUNTER → 2018-07-05 | Outpatient (CLI) | payer OTHER ==
[2018-07-05] VITALS (10 sets, daily range): BP systolic 90–106; BP diastolic 57–81
[~2018-07-05] VITALS: Ht 30.5 cm; Wt 73.9 kg
[~2018-07-05] MED LIST changes: +POTASSIUM CHL 10 Meq TABLET PO ONE; +POTASSIUM CHL 20 Meq TABLET PO SCH
[2018-07-05 08:59] LABS: BUN/Creatinine Ratio 23.6; Calcium 8.8 mg/dL (8.5-10.1); Magnesium 2.6 mg/dL (1.6-2.6); Potassium 3.5 mmol/L (3.5-5.1)
[2018-07-05 09:03] LABS: INR 2.29 (0.9-1.15); Prothrombin Time 23.4 sec (9.27-12.13)
== END | disposition home or self-care (01) ==
LOC: CHF HDHVI 07:53
PROVIDERS: ATTEND Internal Medicine Cardiovascular Disease
DX: I13.0 Hypertensive heart and chronic kidney disease with heart failure and stage 1 through stage 4 chronic kidney disease, or unspecified chronic kidney disease (principal); N18.3 Chronic kidney disease, stage 3 (moderate); I50.43 Acute on chronic combined systolic (congestive) and diastolic (congestive) heart failure; E83.40 Disorders of magnesium metabolism, unspecified; I25.110 Atherosclerotic heart disease of native coronary artery with unstable angina pectoris; E78.5 Hyperlipidemia, unspecified; E03.9 Hypothyroidism, unspecified; I48.91 Unspecified atrial fibrillation; Z87.891 Personal history of nicotine dependence; Z95.810 Presence of automatic (implantable) cardiac defibrillator; Z79.899 Other long term (current) drug therapy; Z79.01 Long term (current) use of anticoagulants; Z98.61 Coronary angioplasty status
CPT/HCPCS: 36415; 80048; 83735; 83880; 85610; 85730; 96365; 96366; 96375; G0463; J1642; J2260; J3490

== ENCOUNTER → 2018-07-07 | Outpatient (CLI) | payer OTHER ==
[~2018-07-07] VITALS: Ht 154.9 cm; Wt 71.0 kg
[2018-07-07] VITALS (10 sets, daily range): BP systolic 82–95; BP diastolic 51–66
[~2018-07-07] MED LIST changes: +POTASSIUM CHL 20 Meq TABLET PO ONE; -POTASSIUM CHL 20 Meq TABLET PO SCH; -SPIR25TA8 PO; +SPIR25TA89 PO
[2018-07-07 09:36] LABS: Potassium 4.1 mmol/L (3.5-5.1)
== END | disposition home or self-care (01) ==
LOC: CHF HDHVI 07:42
PROVIDERS: ATTEND Internal Medicine Cardiovascular Disease
DX: I13.0 Hypertensive heart and chronic kidney disease with heart failure and stage 1 through stage 4 chronic kidney disease, or unspecified chronic kidney disease (principal); I50.43 Acute on chronic combined systolic (congestive) and diastolic (congestive) heart failure; N18.3 Chronic kidney disease, stage 3 (moderate); R06.09 Other forms of dyspnea; R94.4 Abnormal results of kidney function studies; E87.6 Hypokalemia; I25.110 Atherosclerotic heart disease of native coronary artery with unstable angina pectoris; I48.91 Unspecified atrial fibrillation; E78.5 Hyperlipidemia, unspecified; E03.9 Hypothyroidism, unspecified; Z87.891 Personal history of nicotine dependence; Z79.01 Long term (current) use of anticoagulants; Z79.899 Other long term (current) drug therapy; Z95.810 Presence of automatic (implantable) cardiac defibrillator
CPT/HCPCS: 36415; 82565; 83880; 84132; 84520; 96365; 96366; 96375; G0463; J1642; J2260

== ENCOUNTER → 2018-07-10 | Outpatient (CLI) | payer OTHER ==
[~2018-07-10] VITALS: Ht 30.5 cm; Wt 0.5 kg
[2018-07-10] VITALS (10 sets, daily range): BP systolic 84–96; BP diastolic 56–68
[~2018-07-10] MED LIST changes: -ATOR20TA50 PO; -BUME2TAB3 PO; +BUMETANIDE (0.25MG/ML) 4 ML VIAL ONE; -BUMETANIDE INJECTION 10 ML ONE; -CARV6.2551 OR; -LEVO100T8 OR; -POTA95TA2 PO; -POTASSIUM CHL 10 Meq TABLET PO ONE; -POTASSIUM CHL 20 Meq TABLET PO ONE; -WARF2TAB49 PO; -WARF5TAB PO
[2018-07-10 09:17] LABS: Basophils # (auto) 0.1 uL; Eosinophils # (auto) 0.5 uL; Neutrophils # (auto) 3.7 uL
[2018-07-10 09:19] LABS: Basophils % (auto) 0.9 % (0.0-2.0); Eosinophils % (auto) 7.7 % (0.0-7.0); Hematocrit 44.8 % (41.0-53.0); Hemoglobin 14.5 g/dL (13.5-17.5); Lymphocytes # (auto) 1.3 uL; Lymphocytes % (auto) 20.6 % (10.0-50.0); Mean Corpuscular Hgb Conc. 32.3 g/dL (32.0-36.0); Mean Corpuscular Volume 80.7 fL (80.0-100.0); Monocytes # (auto) 0.7 uL; Monocytes % (auto) 11.8 % (0.0-12.0); Nucleated Red Blood Cells % 0.2 %; Platelet Count (auto) 199 10^3/uL (140-450); Red Blood Cells 5.56 10^6/uL (4.5-5.90); White Blood Cell 6.3 10^3/uL (4.4-10.8)
[2018-07-10 09:27] LABS: BUN/Creatinine Ratio 18.8; Calcium 8.5 mg/dL (8.5-10.1); Potassium 4.6 mmol/L (3.5-5.1)
[2018-07-10 09:32] LABS: INR 1.74 (0.9-1.15); Partial Thromboplastin Time 31.3 sec (23.78-33.04)
== END | disposition home or self-care (01) ==
LOC: CHF HDHVI 08:06
PROVIDERS: ATTEND Internal Medicine Cardiovascular Disease
DX: I13.0 Hypertensive heart and chronic kidney disease with heart failure and stage 1 through stage 4 chronic kidney disease, or unspecified chronic kidney disease (principal); I50.43 Acute on chronic combined systolic (congestive) and diastolic (congestive) heart failure; N18.3 Chronic kidney disease, stage 3 (moderate); I25.110 Atherosclerotic heart disease of native coronary artery with unstable angina pectoris; D51.9 Vitamin B12 deficiency anemia, unspecified; R79.1 Abnormal coagulation profile; I48.91 Unspecified atrial fibrillation; E78.5 Hyperlipidemia, unspecified; E03.9 Hypothyroidism, unspecified; Z79.01 Long term (current) use of anticoagulants; Z79.899 Other long term (current) drug therapy; Z87.891 Personal history of nicotine dependence; Z95.810 Presence of automatic (implantable) cardiac defibrillator
CPT/HCPCS: 36415; 80048; 83880; 85025; 85610; 85730; 96365; 96366; 96375; G0463; J1642; J2260

== ENCOUNTER 2018-07-11 12:16 | Inpatient (IN) | payer OTHER ==
[~2018-07-11] VITALS: Ht 167.6 cm; Wt 73.3 kg
[2018-07-11] VITALS (25 sets, daily range): BP systolic 68–115; BP diastolic 31–71
[~2018-07-11 12:16] MED LIST changes: -ALPR0.5T PO; +ATOR20TA50 PO; +BUME2TAB3 PO; -BUMETANIDE (0.25MG/ML) 4 ML VIAL IV ONE; -BUMETANIDE (0.25MG/ML) 4 ML VIAL ONE; +CARV6.2551 OR; +LEVO100T8 OR; -MILRINONE 20MG/100ML 100 ML IV ONE; -MILRINONE 20MG/100ML 100 ML IV SCH; +POTA95TA2 PO; +SPIR25TA8 PO; -SPIR25TA89 PO; +WARF2TAB49 PO; +WARF5TAB PO
[2018-07-11] MEDS ORDERED: LIDOCAINE 2% (LOCAL ANESTH.) PF 5ml SDV ONE (13:24)
[2018-07-11] MEDS ORDERED: IODIXANOL 320MG/ML 100ML BTL IV ONE (13:25)
[2018-07-11] MEDS ORDERED: ANGIOMAX 250 MG VIAL IV ONE (13:39)
[2018-07-11] MEDS ORDERED: SODIUM CHL 0.9% 0 ML ONE (13:41)
[2018-07-11] MEDS ORDERED: MIDAZOLAM HCL 1MG/1ML-2 ML VIAL ONE (13:41)
[2018-07-11] MEDS ORDERED: fentaNYL CITRATE 100 MCG/2 ML VL ONE (13:41)
[2018-07-11] MEDS ORDERED: DOBUTamine 1000MCG/ML 250 ML IV SCH (14:15)
[2018-07-11] MEDS ORDERED: MORPHINE SULF INJ 2 MG/ML SYRINGE 1ML IV PRN (15:00)
[2018-07-11] MEDS ORDERED: NITROGLYCERIN 0.4 MG SL TAB SL PRN (15:00)
[2018-07-11] MEDS ORDERED: ACETAMINOPHEN 500 MG TAB PO PRN (15:00)
[2018-07-11] MEDS ORDERED: ONDANSETRON HCL 4 MG/2 ML VIAL IV PRN (15:00)
[2018-07-11] MEDS: DOBUTamine 1000MCG/ML 250 ML IV SCH (16:30)
[2018-07-11] MEDS ORDERED: SACUBITRIL VALSARTAN PO SCH (22:00)
[2018-07-11] MEDS: SACUBITRIL-VALSARTAN 24mg/26mg TAB PO SCH (22:00)
[2018-07-11] MEDS: IVABRADINE 5 MG PO SCH (22:00)
[2018-07-11] MEDS: SODIUM CHLOR 0.9% PF (SALINE LOCK) 10ML VIAL/SYR IV SCH (22:04)
[2018-07-11] MEDS: CARVEDILOL 3.125 MG TAB PO SCH (22:05)
[2018-07-11] MEDS: ATORVASTATIN 20 MG TAB PO SCH (22:05)
[2018-07-12] VITALS (86 sets, daily range): BP systolic 65–113; BP diastolic 27–73
[2018-07-12] MEDS: SODIUM CHLOR 0.9% PF (SALINE LOCK) 10ML VIAL/SYR IV SCH ×3 (06:00→22:00)
[2018-07-12] MEDS: DOBUTamine 1000MCG/ML 250 ML IV SCH ×2 (08:00→20:30)
[2018-07-12] MEDS: LEVOTHYROXINE SODIUM 88 MCG TAB PO SCH (09:06)
[2018-07-12] MEDS: CHOLECALCIFEROL (VITD3) 1,000 UNIT TAB PO SCH (09:07)
[2018-07-12] MEDS: POTASSIUM CHL 20 Meq TABLET PO SCH (09:07)
[2018-07-12] MEDS: SPIRONOLACTONE 25 MG TAB PO SCH (09:08)
[2018-07-12] MEDS ORDERED: PATIENTS OWN MEDICATION (Cholecalciferol (Vitamin D3) 1 TAB) PO SCH (10:00)
[2018-07-12] MEDS ORDERED: BUMETANIDE 1 MG TAB PO SCH (10:00)
[2018-07-12] MEDS: SACUBITRIL-VALSARTAN 24mg/26mg TAB PO SCH ×2 (10:00→22:00)
[2018-07-12] MEDS: CARVEDILOL 3.125 MG TAB PO SCH ×2 (10:00→22:00)
[2018-07-12] MEDS ORDERED: PATIENTS OWN MEDICATION (Levothyroxine Sodium 1 TAB) PO SCH (10:00)
[2018-07-12 10:34] LABS: Basophils # (auto) 0.1 uL; Eosinophils # (auto) 0.5 uL; Lymphocytes # (auto) 0.9 uL; Lymphocytes % (auto) 14.8 % (10.0-50.0); Mean Corpuscular Hemoglobin 26.3 pg (28.0-32.0); Mean Corpuscular Hgb Conc. 32.6 g/dL (32.0-36.0); Nucleated Red Blood Cells % 0.1 %; White Blood Cell 5.9 10^3/uL (4.4-10.8)
[2018-07-12 10:37] LABS: Basophils % (auto) 1.6 % (0.0-2.0); Hematocrit 41.5 % (41.0-53.0); Hemoglobin 13.5 g/dL (13.5-17.5); Mean Corpuscular Volume 80.9 fL (80.0-100.0); Monocytes # (auto) 0.5 uL; Monocytes % (auto) 8.6 % (0.0-12.0); Neutrophils # (auto) 3.9 uL; Platelet Count (auto) 168 10^3/uL (140-450); Red Blood Cells 5.13 10^6/uL (4.5-5.90); Red Cell Distribution Width 15.3 % (11.8-14.3)
[2018-07-12 11:07] LABS: Alanine Aminotransferase 30 U/L (16-61); Alkaline Phosphatase 43 U/L (45-117); Anion Gap 7 (5-15); Aspartate Aminotransferase 31 U/L (15-37); BUN/Creatinine Ratio 18.1; Blood Urea Nitrogen 27 mg/dL (7-18); Carbon Dioxide 25 mmol/L (21-32); Chloride 108 mmol/L (98-107); GFR African American 61 mL/min; GFR Non-African American 50 mL/min; Glucose 138 mg/dL (74-106); Potassium 3.8 mmol/L (3.5-5.1); Sodium 140 mmol/L (136-145)
[2018-07-12 11:08] LABS: Albumin 3.2 g/dL (3.4-5.0); Bilirubin, Total 1.2 mg/dL (0.2-1.0); Calcium 8.6 mg/dL (8.5-10.1); Total Protein 6.5 g/dL (6.4-8.2)
[2018-07-12] MEDS: IVABRADINE 5 MG PO SCH ×2 (11:54→22:00)
[2018-07-12] MEDS: Fenofibrate 134 MG TAB PO SCH (11:54)
[2018-07-12] MEDS ORDERED: BUMETANIDE (0.25MG/ML) 4 ML VIAL IV ONE (13:45)
[2018-07-12] MEDS ORDERED: CHOL20007 PO (17:06)
[2018-07-12] MEDS: ATORVASTATIN 20 MG TAB PO SCH (22:00)
[2018-07-13] VITALS (73 sets, daily range): BP systolic 78–126; BP diastolic 35–71
[2018-07-13 04:32] LABS: BUN/Creatinine Ratio 20.1; Calcium 8.5 mg/dL (8.5-10.1)
[2018-07-13] MEDS: SODIUM CHLOR 0.9% PF (SALINE LOCK) 10ML VIAL/SYR IV SCH ×3 (06:21→22:06)
[2018-07-13] MEDS: LEVOTHYROXINE SODIUM 88 MCG TAB PO SCH (06:59)
[2018-07-13] MEDS: DOBUTamine 1000MCG/ML 250 ML IV SCH ×3 (08:25→22:10)
[2018-07-13] MEDS: POTASSIUM CHL 20 Meq TABLET PO SCH (09:33)
[2018-07-13] MEDS: SPIRONOLACTONE 25 MG TAB PO SCH (09:33)
[2018-07-13] MEDS: CHOLECALCIFEROL (VITD3) 1,000 UNIT TAB PO SCH (09:33)
[2018-07-13] MEDS: Fenofibrate 134 MG TAB PO SCH (09:33)
[2018-07-13] MEDS: IVABRADINE 5 MG PO SCH ×2 (09:33→22:05)
[2018-07-13] MEDS: BUMETANIDE (0.25MG/ML) 4 ML VIAL IV SCH (09:34)
[2018-07-13] MEDS: CARVEDILOL 3.125 MG TAB PO SCH ×2 (10:00→22:00)
[2018-07-13] MEDS: SACUBITRIL-VALSARTAN 24mg/26mg TAB PO SCH ×2 (10:00→22:00)
[2018-07-13] MEDS: ATORVASTATIN 20 MG TAB PO SCH (22:06)
[2018-07-14] VITALS (34 sets, daily range): BP systolic 85–123; BP diastolic 44–65
[2018-07-14 04:10] LABS: BUN/Creatinine Ratio 19.4; Calcium 8.3 mg/dL (8.5-10.1); Potassium 3.8 mmol/L (3.5-5.1)
[2018-07-14] MEDS: SODIUM CHLOR 0.9% PF (SALINE LOCK) 10ML VIAL/SYR IV SCH ×3 (06:00→22:00)
[2018-07-14] MEDS: LEVOTHYROXINE SODIUM 88 MCG TAB PO SCH (06:45)
[2018-07-14] MEDS: BUMETANIDE (0.25MG/ML) 4 ML VIAL IV SCH (09:18)
[2018-07-14] MEDS: IVABRADINE 5 MG PO SCH ×2 (09:19→22:45)
[2018-07-14] MEDS: CHOLECALCIFEROL (VITD3) 1,000 UNIT TAB PO SCH (09:19)
[2018-07-14] MEDS: SPIRONOLACTONE 25 MG TAB PO SCH (09:19)
[2018-07-14] MEDS: Fenofibrate 134 MG TAB PO SCH (09:19)
[2018-07-14] MEDS: POTASSIUM CHL 20 Meq TABLET PO SCH ×2 (09:19→22:42)
[2018-07-14] MEDS: SACUBITRIL-VALSARTAN 24mg/26mg TAB PO SCH ×2 (09:29→22:00)
[2018-07-14] MEDS: CARVEDILOL 3.125 MG TAB PO SCH ×2 (09:29→22:00)
[2018-07-14] MEDS: DOBUTamine 1000MCG/ML 250 ML IV SCH ×2 (10:34→22:51)
[2018-07-14] MEDS: BUMETANIDE 1 MG TAB PO SCH (18:00)
[2018-07-14] MEDS: ATORVASTATIN 20 MG TAB PO SCH (22:41)
[2018-07-15 04:00] VITALS: BP 97/62
[2018-07-15] MEDS: SODIUM CHLOR 0.9% PF (SALINE LOCK) 10ML VIAL/SYR IV SCH ×3 (05:56→22:19)
[2018-07-15] MEDS: BUMETANIDE 1 MG TAB PO SCH (05:56)
[2018-07-15] MEDS: LEVOTHYROXINE SODIUM 88 MCG TAB PO SCH (05:56)
[2018-07-15 06:48] LABS: BUN/Creatinine Ratio 16.5; Calcium 8.5 mg/dL (8.5-10.1); Potassium 4.1 mmol/L (3.5-5.1)
[2018-07-15 09:00] VITALS: BP 86/66
[2018-07-15] MEDS: Fenofibrate 134 MG TAB PO SCH (09:57)
[2018-07-15] MEDS: SPIRONOLACTONE 25 MG TAB PO SCH (09:58)
[2018-07-15] MEDS: CARVEDILOL 3.125 MG TAB PO SCH ×2 (09:58→22:00)
[2018-07-15] MEDS: IVABRADINE 5 MG PO SCH ×2 (09:58→22:17)
[2018-07-15] MEDS: SACUBITRIL-VALSARTAN 24mg/26mg TAB PO SCH ×2 (10:00→22:00)
[2018-07-15] MEDS: CHOLECALCIFEROL (VITD3) 1,000 UNIT TAB PO SCH (10:12)
[2018-07-15] MEDS: POTASSIUM CHL 20 Meq TABLET PO SCH (10:12)
[2018-07-15 12:47] VITALS: BP 94/63
[2018-07-15] MEDS: DOBUTamine 1000MCG/ML 250 ML IV SCH ×2 (13:16→22:51)
[2018-07-15 16:37] VITALS: BP 96/59
[2018-07-15 22:00] VITALS: BP 86/54
[2018-07-15] MEDS: ATORVASTATIN 20 MG TAB PO SCH (22:17)
[2018-07-16 05:00] VITALS: BP 96/67
[2018-07-16 06:13] LABS: Calcium 8.5 mg/dL (8.5-10.1); Potassium 3.7 mmol/L (3.5-5.1)
[2018-07-16 06:16] LABS: BUN/Creatinine Ratio 18.8
[2018-07-16] MEDS: LEVOTHYROXINE SODIUM 88 MCG TAB PO SCH (06:29)
[2018-07-16] MEDS: SODIUM CHLOR 0.9% PF (SALINE LOCK) 10ML VIAL/SYR IV SCH ×3 (06:29→22:39)
[2018-07-16] MEDS ORDERED: BUMETANIDE 1 MG TAB PO SCH (07:00)
[2018-07-16 09:11] VITALS: BP 87/67
[2018-07-16] MEDS: CHOLECALCIFEROL (VITD3) 1,000 UNIT TAB PO SCH (09:23)
[2018-07-16] MEDS: Fenofibrate 134 MG TAB PO SCH (09:23)
[2018-07-16] MEDS: POTASSIUM CHL 20 Meq TABLET PO SCH (09:23)
[2018-07-16] MEDS: SPIRONOLACTONE 25 MG TAB PO SCH (09:24)
[2018-07-16] MEDS: IVABRADINE 5 MG PO SCH ×2 (09:24→22:37)
[2018-07-16] MEDS: CARVEDILOL 3.125 MG TAB PO SCH ×2 (09:26→22:00)
[2018-07-16] MEDS: SACUBITRIL-VALSARTAN 24mg/26mg TAB PO SCH ×2 (09:27→22:00)
[2018-07-16] MEDS: ALPRAZolam 0.5 MG TAB PO PRN (11:18)
[2018-07-16] MEDS ORDERED: ALPR0.5T PO (11:19)
[2018-07-16 12:32] VITALS: BP 90/61
[2018-07-16] MEDS: DOBUTamine 1000MCG/ML 250 ML IV SCH ×2 (12:38→22:38)
[2018-07-16 16:41] VITALS: BP 96/65
[2018-07-16 21:35] VITALS: BP 93/66
[2018-07-16] MEDS: ATORVASTATIN 20 MG TAB PO SCH (22:38)
[2018-07-17 05:07] VITALS: BP 108/74
[2018-07-17] MEDS: SODIUM CHLOR 0.9% PF (SALINE LOCK) 10ML VIAL/SYR IV SCH ×3 (06:00→23:25)
[2018-07-17 06:16] LABS: Calcium 8.6 mg/dL (8.5-10.1); Magnesium 2.2 mg/dL (1.6-2.6); Potassium 3.9 mmol/L (3.5-5.1)
[2018-07-17 06:19] LABS: Basophils # (auto) 0 uL; Basophils % (auto) 0.6 % (0.0-2.0); Eosinophils # (auto) 0.4 uL; Hemoglobin 12.9 g/dL (13.5-17.5); Monocytes # (auto) 0.6 uL; Platelet Count (auto) 152 10^3/uL (140-450); Red Cell Distribution Width 15.3 % (11.8-14.3)
[2018-07-17 06:29] LABS: Eosinophils % (auto) 7.5 % (0.0-7.0); Hematocrit 38.5 % (41.0-53.0); Lymphocytes % (auto) 17.6 % (10.0-50.0); Mean Corpuscular Hemoglobin 26.7 pg (28.0-32.0); Mean Corpuscular Hgb Conc. 33.5 g/dL (32.0-36.0); Mean Corpuscular Volume 79.6 fL (80.0-100.0); Monocytes % (auto) 10.3 % (0.0-12.0); Neutrophils # (auto) 3.5 uL; Nucleated Red Blood Cells % 0.2 %; Red Blood Cells 4.83 10^6/uL (4.5-5.90); White Blood Cell 5.5 10^3/uL (4.4-10.8)
[2018-07-17] MEDS ORDERED: BUMETANIDE 1 MG TAB PO SCH (07:00)
[2018-07-17] MEDS: LEVOTHYROXINE SODIUM 88 MCG TAB PO SCH (07:05)
[2018-07-17 09:05] VITALS: BP 107/57
[2018-07-17] MEDS: CHOLECALCIFEROL (VITD3) 1,000 UNIT TAB PO SCH (09:50)
[2018-07-17] MEDS: POTASSIUM CHL 20 Meq TABLET PO SCH (09:50)
[2018-07-17] MEDS: SPIRONOLACTONE 25 MG TAB PO SCH (09:50)
[2018-07-17] MEDS: IVABRADINE 5 MG PO SCH ×2 (09:51→23:28)
[2018-07-17] MEDS: Fenofibrate 134 MG TAB PO SCH (09:51)
[2018-07-17] MEDS: CARVEDILOL 3.125 MG TAB PO SCH ×2 (10:00→23:34)
[2018-07-17] MEDS: SACUBITRIL-VALSARTAN 24mg/26mg TAB PO SCH ×2 (10:00→23:26)
[2018-07-17] MEDS: DOBUTamine 1000MCG/ML 250 ML IV SCH (12:42)
[2018-07-17 14:27] VITALS: BP 97/57
[2018-07-17] MEDS ORDERED: FUROSEMIDE 40 MG/4 ML VIAL IV ONE (16:30)
[2018-07-17 16:43] VITALS: BP 85/54
[2018-07-17 21:28] VITALS: BP 93/63
[2018-07-17] MEDS: ALPRAZolam 0.5 MG TAB PO PRN (23:26)
[2018-07-17] MEDS: ATORVASTATIN 20 MG TAB PO SCH (23:26)
[2018-07-18] MEDS: DOBUTamine 1000MCG/ML 250 ML IV SCH ×2 (00:35→12:17)
[2018-07-18 05:03] VITALS: BP 84/57
[2018-07-18 06:12] LABS: Basophils # (auto) 0 uL; Eosinophils # (auto) 0.5 uL; Hemoglobin 12.4 g/dL (13.5-17.5); Lymphocytes # (auto) 0.9 uL; Mean Corpuscular Hemoglobin 26.4 pg (28.0-32.0); Monocytes # (auto) 0.5 uL
[2018-07-18] MEDS: SODIUM CHLOR 0.9% PF (SALINE LOCK) 10ML VIAL/SYR IV SCH ×3 (06:14→21:25)
[2018-07-18] MEDS: LEVOTHYROXINE SODIUM 88 MCG TAB PO SCH (06:16)
[2018-07-18 06:22] LABS: Basophils % (auto) 0.9 % (0.0-2.0); Eosinophils % (auto) 10.8 % (0.0-7.0); Hematocrit 37.1 % (41.0-53.0); Lymphocytes % (auto) 19.7 % (10.0-50.0); Mean Corpuscular Hgb Conc. 33.3 g/dL (32.0-36.0); Mean Corpuscular Volume 79.3 fL (80.0-100.0); Monocytes % (auto) 11.1 % (0.0-12.0); Neutrophils # (auto) 2.7 uL; Neutrophils % (auto) 57.5 % (37.0-80.0); Nucleated Red Blood Cells % 0.2 %; Platelet Count (auto) 151 10^3/uL (140-450); Red Blood Cells 4.68 10^6/uL (4.5-5.90); Red Cell Distribution Width 15.2 % (11.8-14.3); White Blood Cell 4.8 10^3/uL (4.4-10.8)
[2018-07-18 06:24] LABS: BUN/Creatinine Ratio 21.8; Calcium 8.4 mg/dL (8.5-10.1); Magnesium 2.1 mg/dL (1.6-2.6); Potassium 3.6 mmol/L (3.5-5.1)
[2018-07-18 08:38] VITALS: BP 81/55
[2018-07-18] MEDS: IVABRADINE 5 MG PO SCH ×2 (09:42→21:26)
[2018-07-18] MEDS: POTASSIUM CHL 20 Meq TABLET PO SCH (09:42)
[2018-07-18] MEDS: CHOLECALCIFEROL (VITD3) 1,000 UNIT TAB PO SCH (09:42)
[2018-07-18] MEDS: Fenofibrate 134 MG TAB PO SCH (09:48)
[2018-07-18] MEDS ORDERED: BUMETANIDE (0.25MG/ML) 4 ML VIAL IV SCH (10:00)
[2018-07-18] MEDS: SACUBITRIL-VALSARTAN 24mg/26mg TAB PO SCH ×2 (10:00→21:29)
[2018-07-18] MEDS: CARVEDILOL 3.125 MG TAB PO SCH ×2 (10:00→21:27)
[2018-07-18 13:00] VITALS: BP 80/59
[2018-07-18] MEDS ORDERED: LIDOCAINE 2% (LOCAL ANESTH.) PF 5ml SDV ONE (14:02)
[2018-07-18] MEDS ORDERED: MIDAZOLAM HCL 1MG/1ML-2 ML VIAL ONE (14:17)
[2018-07-18] MEDS ORDERED: fentaNYL CITRATE 100 MCG/2 ML VL ONE (14:17)
[2018-07-18] MEDS ORDERED: FUROSEMIDE 40 MG/4 ML VIAL IV ONE (14:30)
[2018-07-18] MEDS ORDERED: NITROGLYCERIN 50MG/250ML 250 ML IV ONE (14:32)
[2018-07-18 17:08] VITALS: BP 88/57
[2018-07-18] MEDS: SPIRONOLACTONE 25 MG TAB PO SCH (19:15)
[2018-07-18] MEDS: ATORVASTATIN 20 MG TAB PO SCH (21:30)
[2018-07-18] MEDS: ALPRAZolam 0.5 MG TAB PO PRN (21:30)
[2018-07-18 22:00] VITALS: BP 92/63
[2018-07-19] MEDS: DOBUTamine 1000MCG/ML 250 ML IV SCH ×2 (00:13→12:15)
[2018-07-19 05:00] VITALS: BP 96/59
[2018-07-19] MEDS: LEVOTHYROXINE SODIUM 88 MCG TAB PO SCH (06:29)
[2018-07-19] MEDS: SODIUM CHLOR 0.9% PF (SALINE LOCK) 10ML VIAL/SYR IV SCH ×3 (06:29→21:45)
[2018-07-19 09:30] VITALS: BP 90/60
[2018-07-19] MEDS: SPIRONOLACTONE 25 MG TAB PO SCH (09:50)
[2018-07-19] MEDS: POTASSIUM CHL 20 Meq TABLET PO SCH (09:51)
[2018-07-19] MEDS: CHOLECALCIFEROL (VITD3) 1,000 UNIT TAB PO SCH (09:51)
[2018-07-19] MEDS: IVABRADINE 5 MG PO SCH ×2 (09:52→21:42)
[2018-07-19] MEDS: Fenofibrate 134 MG TAB PO SCH (09:52)
[2018-07-19] MEDS: CARVEDILOL 3.125 MG TAB PO SCH ×2 (10:00→21:41)
[2018-07-19] MEDS: SACUBITRIL-VALSARTAN 24mg/26mg TAB PO SCH ×2 (10:00→21:42)
[2018-07-19 12:33] VITALS: BP 87/62
[2018-07-19] MEDS: FUROSEMIDE 40 MG/4 ML VIAL IV SCH (14:33)
[2018-07-19 16:58] VITALS: BP 89/57
[2018-07-19] MEDS: ATORVASTATIN 20 MG TAB PO SCH (21:42)
[2018-07-19] MEDS: ALPRAZolam 0.5 MG TAB PO PRN (21:43)
[2018-07-19 22:00] VITALS: BP 88/60
[2018-07-20] MEDS: SODIUM CHLOR 0.9% PF (SALINE LOCK) 10ML VIAL/SYR IV SCH ×3 (01:43→21:57)
[2018-07-20 05:00] VITALS: BP 81/57
[2018-07-20 06:44] LABS: BUN/Creatinine Ratio 20.6; Calcium 8.6 mg/dL (8.5-10.1); Potassium 3.7 mmol/L (3.5-5.1)
[2018-07-20] MEDS: LEVOTHYROXINE SODIUM 88 MCG TAB PO SCH (07:08)
[2018-07-20 08:28] VITALS: BP 96/69
[2018-07-20] MEDS: CHOLECALCIFEROL (VITD3) 1,000 UNIT TAB PO SCH (09:43)
[2018-07-20] MEDS: POTASSIUM CHL 20 Meq TABLET PO SCH (09:44)
[2018-07-20] MEDS: CARVEDILOL 3.125 MG TAB PO SCH ×2 (09:44→22:00)
[2018-07-20] MEDS: SPIRONOLACTONE 25 MG TAB PO SCH (09:44)
[2018-07-20] MEDS: SACUBITRIL-VALSARTAN 24mg/26mg TAB PO SCH ×2 (09:45→22:00)
[2018-07-20] MEDS: Fenofibrate 134 MG TAB PO SCH (09:46)
[2018-07-20] MEDS: IVABRADINE 5 MG PO SCH ×2 (09:46→21:58)
[2018-07-20 12:29] VITALS: BP 87/63
[2018-07-20] MEDS: DOBUTamine 1000MCG/ML 250 ML IV SCH ×2 (13:40)
[2018-07-20] MEDS: FUROSEMIDE 40 MG/4 ML VIAL IV SCH (14:18)
[2018-07-20 16:43] VITALS: BP 88/57
[2018-07-20] MEDS: ATORVASTATIN 20 MG TAB PO SCH (21:57)
[2018-07-20] MEDS: ALPRAZolam 0.5 MG TAB PO PRN (21:57)
[2018-07-20 22:00] VITALS: BP 82/56
[2018-07-21 05:18] VITALS: BP 92/57
[2018-07-21] MEDS: DOBUTamine 1000MCG/ML 250 ML IV SCH ×3 (05:19→13:00)
[2018-07-21] MEDS: SODIUM CHLOR 0.9% PF (SALINE LOCK) 10ML VIAL/SYR IV SCH ×3 (06:48→22:09)
[2018-07-21] MEDS: LEVOTHYROXINE SODIUM 88 MCG TAB PO SCH (06:48)
[2018-07-21 08:15] VITALS: BP 97/71
[2018-07-21] MEDS: CHOLECALCIFEROL (VITD3) 1,000 UNIT TAB PO SCH (09:45)
[2018-07-21] MEDS: IVABRADINE 5 MG PO SCH ×2 (09:45→21:42)
[2018-07-21] MEDS: Fenofibrate 134 MG TAB PO SCH (09:45)
[2018-07-21] MEDS: FUROSEMIDE 40 MG/4 ML VIAL IV SCH (09:45)
[2018-07-21] MEDS: POTASSIUM CHL 20 Meq TABLET PO SCH ×2 (09:45→21:42)
[2018-07-21] MEDS: SPIRONOLACTONE 25 MG TAB PO SCH (09:46)
[2018-07-21] MEDS: CARVEDILOL 3.125 MG TAB PO SCH ×3 (09:46→22:00)
[2018-07-21] MEDS: SACUBITRIL-VALSARTAN 24mg/26mg TAB PO SCH ×3 (09:46→22:00)
[2018-07-21 12:21] VITALS: BP 94/66
[2018-07-21] MEDS ORDERED: FUROSEMIDE 40 MG/4 ML VIAL IV SCH (14:00)
[2018-07-21] MEDS ORDERED: FUROSEMIDE 40 MG/4 ML VIAL IV ONE (16:30)
[2018-07-21 17:00] VITALS: BP 92/72
[2018-07-21] MEDS: ALPRAZolam 0.5 MG TAB PO PRN (21:43)
[2018-07-21] MEDS: ATORVASTATIN 20 MG TAB PO SCH (21:43)
[2018-07-21 22:00] VITALS: BP 91/66
[2018-07-22] MEDS: DOBUTamine 1000MCG/ML 250 ML IV SCH ×3 (00:35→22:01)
[2018-07-22 04:39] VITALS: BP 84/52
[2018-07-22] MEDS ORDERED: FUROSEMIDE 40 MG/4 ML VIAL IV SCH (06:00)
[2018-07-22 06:13] LABS: Basophils # (auto) 0.1 uL; Eosinophils # (auto) 0.6 uL; Hemoglobin 12.6 g/dL (13.5-17.5); Nucleated Red Blood Cells % 0.1 %; White Blood Cell 5.3 10^3/uL (4.4-10.8)
[2018-07-22 06:17] LABS: Eosinophils % (auto) 10.6 % (0.0-7.0); Hematocrit 37.9 % (41.0-53.0); Lymphocytes # (auto) 0.9 uL; Lymphocytes % (auto) 16.1 % (10.0-50.0); Mean Corpuscular Hemoglobin 26.6 pg (28.0-32.0); Mean Corpuscular Hgb Conc. 33.3 g/dL (32.0-36.0); Monocytes # (auto) 0.7 uL; Monocytes % (auto) 12.3 % (0.0-12.0); Neutrophils # (auto) 3.2 uL; Platelet Count (auto) 137 10^3/uL (140-450); Red Blood Cells 4.74 10^6/uL (4.5-5.90)
[2018-07-22 06:31] LABS: BUN/Creatinine Ratio 15.4; Calcium 8.8 mg/dL (8.5-10.1); Magnesium 2.2 mg/dL (1.6-2.6)
[2018-07-22] MEDS: SODIUM CHLOR 0.9% PF (SALINE LOCK) 10ML VIAL/SYR IV SCH ×3 (06:47→21:34)
[2018-07-22] MEDS: LEVOTHYROXINE SODIUM 88 MCG TAB PO SCH (06:47)
[2018-07-22 09:00] VITALS: BP 94/65
[2018-07-22] MEDS: CARVEDILOL 3.125 MG TAB PO SCH ×3 (10:00→21:35)
[2018-07-22] MEDS: CHOLECALCIFEROL (VITD3) 1,000 UNIT TAB PO SCH (10:06)
[2018-07-22] MEDS: SACUBITRIL-VALSARTAN 24mg/26mg TAB PO SCH ×2 (10:06→21:36)
[2018-07-22] MEDS: HYDROcodone-ACET 5/325MG TAB PO PRN ×2 (10:08→17:30)
[2018-07-22] MEDS: POTASSIUM CHL 20 Meq TABLET PO SCH ×2 (10:09→21:34)
[2018-07-22] MEDS: IVABRADINE 5 MG PO SCH ×2 (10:10→21:36)
[2018-07-22] MEDS: SPIRONOLACTONE 25 MG TAB PO SCH (10:10)
[2018-07-22] MEDS: Fenofibrate 134 MG TAB PO SCH (10:10)
[2018-07-22 12:56] VITALS: BP 91/65
[2018-07-22 17:00] VITALS: BP 87/64
[2018-07-22] MEDS: FUROSEMIDE INJECTION 250 MG in SODIUM CHL 0.9% 225 ML IV SCH (18:47)
[2018-07-22] MEDS: ALPRAZolam 0.5 MG TAB PO PRN (21:34)
[2018-07-22] MEDS: ATORVASTATIN 20 MG TAB PO SCH (21:34)
[2018-07-22 22:00] VITALS: BP 92/67
[2018-07-23] MEDS: DOBUTamine 1000MCG/ML 250 ML IV SCH ×2 (03:36→16:43)
[2018-07-23 05:00] VITALS: BP 99/56
[2018-07-23 06:08] LABS: Basophils # (auto) 0.1 uL; Eosinophils # (auto) 0.5 uL; Lymphocytes # (auto) 0.8 uL; Platelet Count (auto) 139 10^3/uL (140-450)
[2018-07-23 06:10] LABS: Eosinophils % (auto) 8.4 % (0.0-7.0); Lymphocytes % (auto) 13.3 % (10.0-50.0); Mean Corpuscular Hemoglobin 26.5 pg (28.0-32.0); Mean Corpuscular Hgb Conc. 33.2 g/dL (32.0-36.0); Mean Corpuscular Volume 79.8 fL (80.0-100.0); Monocytes # (auto) 0.7 uL; Monocytes % (auto) 11.2 % (0.0-12.0); Neutrophils # (auto) 4.1 uL; Neutrophils % (auto) 66.1 % (37.0-80.0); Nucleated Red Blood Cells % 0.1 %; Red Blood Cells 4.89 10^6/uL (4.5-5.90); Red Cell Distribution Width 15.5 % (11.8-14.3); White Blood Cell 6.2 10^3/uL (4.4-10.8)
[2018-07-23 06:22] LABS: BUN/Creatinine Ratio 19.3; Calcium 8.3 mg/dL (8.5-10.1); Magnesium 2.4 mg/dL (1.6-2.6); Potassium 3.5 mmol/L (3.5-5.1)
[2018-07-23] MEDS: SODIUM CHLOR 0.9% PF (SALINE LOCK) 10ML VIAL/SYR IV SCH ×3 (06:24→21:30)
[2018-07-23] MEDS: LEVOTHYROXINE SODIUM 88 MCG TAB PO SCH (06:27)
[2018-07-23 09:00] VITALS: BP 90/63
[2018-07-23] MEDS: POTASSIUM CHL 20 Meq TABLET PO SCH ×2 (09:16→21:30)
[2018-07-23] MEDS: SPIRONOLACTONE 25 MG TAB PO SCH (09:16)
[2018-07-23] MEDS: CHOLECALCIFEROL (VITD3) 1,000 UNIT TAB PO SCH (09:16)
[2018-07-23] MEDS: Fenofibrate 134 MG TAB PO SCH (09:17)
[2018-07-23] MEDS: IVABRADINE 5 MG PO SCH ×2 (09:17→21:32)
[2018-07-23] MEDS: CARVEDILOL 3.125 MG TAB PO SCH ×2 (09:18→21:31)
[2018-07-23] MEDS: SACUBITRIL-VALSARTAN 24mg/26mg TAB PO SCH ×2 (10:00→21:31)
[2018-07-23] MEDS: FUROSEMIDE INJECTION 250 MG in SODIUM CHL 0.9% 225 ML IV SCH (16:44)
[2018-07-23 16:46] VITALS: BP 84/60
[2018-07-23] MEDS: ATORVASTATIN 20 MG TAB PO SCH (21:30)
[2018-07-23] MEDS: ALPRAZolam 0.5 MG TAB PO PRN (21:39)
[2018-07-23 22:00] VITALS: BP 96/70
[2018-07-24 05:00] VITALS: BP 87/45
[2018-07-24 06:22] LABS: Hemoglobin 12.6 g/dL (13.5-17.5); Lymphocytes # (auto) 0.9 uL; Mean Corpuscular Hemoglobin 26.6 pg (28.0-32.0); Neutrophils # (auto) 3.6 uL; Nucleated Red Blood Cells % 0.1 %; Platelet Count (auto) 135 10^3/uL (140-450); White Blood Cell 5.8 10^3/uL (4.4-10.8)
[2018-07-24 06:26] LABS: Basophils # (auto) 0.1 uL; Eosinophils # (auto) 0.5 uL; Eosinophils % (auto) 9.4 % (0.0-7.0); Hematocrit 37.7 % (41.0-53.0); Lymphocytes % (auto) 14.8 % (10.0-50.0); Mean Corpuscular Hgb Conc. 33.4 g/dL (32.0-36.0); Mean Corpuscular Volume 79.7 fL (80.0-100.0); Monocytes # (auto) 0.7 uL; Monocytes % (auto) 12.5 % (0.0-12.0); Neutrophils % (auto) 62.3 % (37.0-80.0); Red Blood Cells 4.73 10^6/uL (4.5-5.90); Red Cell Distribution Width 15.8 % (11.8-14.3)
[2018-07-24] MEDS: DOBUTamine 1000MCG/ML 250 ML IV SCH ×2 (06:33→14:41)
[2018-07-24] MEDS: LEVOTHYROXINE SODIUM 88 MCG TAB PO SCH (06:33)
[2018-07-24] MEDS: SODIUM CHLOR 0.9% PF (SALINE LOCK) 10ML VIAL/SYR IV SCH ×2 (06:33→14:41)
[2018-07-24 06:35] LABS: Potassium 3.1 mmol/L (3.5-5.1)
[2018-07-24 06:52] LABS: BUN/Creatinine Ratio 19.2; Calcium 8.5 mg/dL (8.5-10.1); Magnesium 2.1 mg/dL (1.6-2.6)
[2018-07-24] MEDS: FUROSEMIDE INJECTION 250 MG in SODIUM CHL 0.9% 225 ML IV SCH (08:09)
[2018-07-24] MEDS: IVABRADINE 5 MG PO SCH (08:52)
[2018-07-24] MEDS: SACUBITRIL-VALSARTAN 24mg/26mg TAB PO SCH (08:52)
[2018-07-24] MEDS: Fenofibrate 134 MG TAB PO SCH (08:52)
[2018-07-24] MEDS: CARVEDILOL 3.125 MG TAB PO SCH (08:52)
[2018-07-24] MEDS: SPIRONOLACTONE 25 MG TAB PO SCH (08:52)
[2018-07-24] MEDS: CHOLECALCIFEROL (VITD3) 1,000 UNIT TAB PO SCH (08:53)
[2018-07-24] MEDS: POTASSIUM CHL 20 Meq TABLET PO SCH (08:53)
[2018-07-24 09:00] VITALS: BP 95/65
[2018-07-24] MEDS ORDERED: ALPRAZolam 0.5 MG TAB PO PRN (11:15)
[2018-07-24 13:00] VITALS: BP 87/60
[2018-07-24 17:00] VITALS: BP 95/66
== END 2018-07-24 21:00 | disposition short-term general hospital (02) | DRG 286 ==
LOC: CATH 12:16 → ICU WEST 12:17 → TELE-EAST 07-14 15:00
PROVIDERS: ADMIT Internal Medicine Cardiovascular Disease; ATTEND Internal Medicine
PROC: 4A023N7 Measurement of Cardiac Sampling and Pressure, Left Heart, Percutaneous Approach (ICD-10-PCS; 2018-07-11)
PROC: B2111ZZ Fluoroscopy of Multiple Coronary Arteries using Low Osmolar Contrast (ICD-10-PCS; 2018-07-11)
PROC: B2151ZZ Fluoroscopy of Left Heart using Low Osmolar Contrast (ICD-10-PCS; 2018-07-11)
PROC: B2111ZZ Fluoroscopy of Multiple Coronary Arteries using Low Osmolar Contrast (ICD-10-PCS; principal; 2018-07-18)
PROC: 4A023N6 Measurement of Cardiac Sampling and Pressure, Right Heart, Percutaneous Approach (ICD-10-PCS; 2018-07-18)
DX: I13.0 Hypertensive heart and chronic kidney disease with heart failure and stage 1 through stage 4 chronic kidney disease, or unspecified chronic kidney disease (principal); I50.23 Acute on chronic systolic (congestive) heart failure; N17.9 Acute kidney failure, unspecified; I42.0 Dilated cardiomyopathy; Z95.810 Presence of automatic (implantable) cardiac defibrillator; N18.3 Chronic kidney disease, stage 3 (moderate); I27.20 Pulmonary hypertension, unspecified; E03.9 Hypothyroidism, unspecified; E86.9 Volume depletion, unspecified
CPT/HCPCS: 36415; 76705; 80048; 80053; 83735; 85025; 87081; 93451; 93458; 99152; A6257; C1751; J2001; J2250; Q9967

== ENCOUNTER → 2019-07-09 | Outpatient (CLI) | payer OTHER ==
[~2019-07-09] MED LIST changes: +ALPR0.5T PO; -ATOR20TA50 PO; -BUME2TAB3 PO; -CARV6.2551 OR; -LEVO100T8 OR; +POTA-220 PO; -POTA20TA53 PO; -POTA95TA2 PO; -WARF2TAB49 PO; -WARF5TAB PO
[2019-07-09 12:31] LABS: Urine Blood Negative /uL (Negative); Urine Specific Gravity 1.017 (1.001-1.035)
[2019-07-09 12:33] LABS: Basophils # (auto) 0 uL; Basophils % (auto) 0.8 % (0.0-2.0); Eosinophils # (auto) 0.1 uL; Eosinophils % (auto) 2.3 % (0.0-7.0); Hematocrit 42.9 % (41.0-53.0); Hemoglobin 13.9 g/dL (13.5-17.5); Lymphocytes % (auto) 19.1 % (10.0-50.0); Mean Corpuscular Hemoglobin 27.5 pg (28.0-32.0); Mean Corpuscular Hgb Conc. 32.3 g/dL (32.0-36.0); Monocytes # (auto) 0.5 uL; Monocytes % (auto) 9.1 % (0.0-12.0); Neutrophils # (auto) 3.5 uL; Neutrophils % (auto) 68.7 % (37.0-80.0); Nucleated Red Blood Cells % 0.1 %; Platelet Count (auto) 194 10^3/uL (140-450); Red Blood Cells 5.05 10^6/uL (4.5-5.90); Red Cell Distribution Width 14.6 % (11.8-14.3)
[2019-07-09 12:58] LABS: Potassium 3.9 mmol/L (3.5-5.1)
[2019-07-09 13:12] LABS: Free T4 (Free Thyroxine) 1.13 ng/dL (0.89-1.76); Prostate Specific Antigen 1.87 ng/mL (0.0-4.0)
[2019-07-09 13:21] LABS: Albumin 3.9 g/dL (3.4-5.0); BUN/Creatinine Ratio 21.8; Bilirubin, Total 0.5 mg/dL (0.2-1.0); Calcium 9.4 mg/dL (8.5-10.1); Total Protein 7.4 g/dL (6.4-8.2)
== END | disposition home or self-care (01) ==
LOC: Rad HDHVI 08:43
PROVIDERS: ATTEND Internal Medicine Cardiovascular Disease
DX: Z00.00 Encounter for general adult medical examination without abnormal findings (principal); K57.30 Diverticulosis of large intestine without perforation or abscess without bleeding; N20.0 Calculus of kidney; E03.9 Hypothyroidism, unspecified; K90.9 Intestinal malabsorption, unspecified; C61 Malignant neoplasm of prostate; E29.1 Testicular hypofunction; E11.9 Type 2 diabetes mellitus without complications; N39.0 Urinary tract infection, site not specified; D51.9 Vitamin B12 deficiency anemia, unspecified
CPT/HCPCS: 36415; 74176; 80053; 80061; 81003; 82306; 82607; 83036; 84153; 84403; 84439; 84443; 85025

== ENCOUNTER → 2019-09-04 | Outpatient (CLI) | payer MEDICARE, MEDICAID ==
[2019-09-04 11:59] LABS: Urine Blood Negative /uL (Negative); Urine Specific Gravity 1.027 (1.001-1.035)
[2019-09-04 12:09] LABS: Basophils # (auto) 0 uL; Eosinophils # (auto) 0.3 uL; Monocytes # (auto) 0.6 uL
[2019-09-04 12:11] LABS: Eosinophils % (auto) 6.3 % (0.0-7.0); Hematocrit 42.2 % (41.0-53.0); Hemoglobin 13.8 g/dL (13.5-17.5); Lymphocytes # (auto) 0.9 uL; Lymphocytes % (auto) 22.6 % (10.0-50.0); Mean Corpuscular Hemoglobin 26.6 pg (28.0-32.0); Mean Corpuscular Hgb Conc. 32.6 g/dL (32.0-36.0); Mean Corpuscular Volume 81.6 fL (80.0-100.0); Monocytes % (auto) 13.6 % (0.0-12.0); Neutrophils # (auto) 2.3 uL; Neutrophils % (auto) 56.5 % (37.0-80.0); Nucleated Red Blood Cells % 0.3 %; Platelet Count (auto) 204 10^3/uL (140-450); Red Blood Cells 5.17 10^6/uL (4.5-5.90); Red Cell Distribution Width 13.1 % (11.8-14.3); White Blood Cell 4.1 10^3/uL (4.4-10.8)
[2019-09-04 13:09] LABS: Albumin 3.3 g/dL (3.4-5.0); Calcium 9.2 mg/dL (8.5-10.1); Potassium 4.1 mmol/L (3.5-5.1)
[2019-09-04 13:13] LABS: Bilirubin, Direct 0.2 mg/dL (0-0.2); Bilirubin, Total 0.5 mg/dL (0.2-1.0); Total Protein 7.3 g/dL (6.4-8.2)
[2019-09-04 13:46] LABS: BUN/Creatinine Ratio 21.8
== END | disposition home or self-care (01) ==
LOC: Rad HDHVI 09:52
PROVIDERS: ATTEND Internal Medicine Cardiovascular Disease
DX: N39.0 Urinary tract infection, site not specified (principal); I70.0 Atherosclerosis of aorta; D64.9 Anemia, unspecified; K74.1 Hepatic sclerosis; R53.1 Weakness
CPT/HCPCS: 36415; 71250; 80048; 80076; 81003; 85025

== ENCOUNTER 2019-10-01 08:16 | Emergency (ER) | payer MEDICARE, MEDICAID ==
[~2019-10-01] VITALS: Ht 165.1 cm; Wt 62.6 kg
[2019-10-01] MEDS ORDERED: ONDANSETRON HCL 4 MG/2 ML VIAL IV ONE (08:45)
[2019-10-01] MEDS ORDERED: MORPHINE SULFATE 4 MG/ML SYR/VIAL IV ONE (08:45)
[2019-10-01 09:30] LABS: Urine Bacteria NONE SEEN /hpf (None Seen); Urine Blood Negative /uL (Negative); Urine Hyaline Cast FEW /lpf (0 - 2); Urine Mucus FEW (None Seen); Urine Specific Gravity 1.023 (1.001-1.035); Urine WBC 49 /hpf (0 - 3)
[2019-10-01 10:06] LABS: Hemoglobin 13.1 g/dL (13.5-17.5); White Blood Cell 3.6 10^3/uL (4.4-10.8)
[2019-10-01 10:08] LABS: Hematocrit 39.2 % (41.0-53.0); Mean Corpuscular Hemoglobin 26.1 pg (28.0-32.0); Mean Corpuscular Hgb Conc. 33.3 g/dL (32.0-36.0); Mean Corpuscular Volume 78.4 fL (80.0-100.0); Platelet Count (auto) 153 10^3/uL (140-450)
[2019-10-01] MEDS ORDERED: SODIUM CHLORIDE 0.9% 1,000 ML IV ONE ×2 (10:15→13:45)
[2019-10-01 10:17] LABS: Basophils % (manual) 0 (0.0-2.0); Blast Cells 0; Myelocytes % 0; Promyelocytes % 0; Reactive Lymphocytes 0
[2019-10-01 10:28] LABS: Alanine Aminotransferase 25 U/L (16-61); Albumin 3.1 g/dL (3.4-5.0); Anion Gap 8 (5-15); Aspartate Aminotransferase 22 U/L (15-37); BUN/Creatinine Ratio 19.5; Blood Urea Nitrogen 33 mg/dL (7-18); Calcium 8.8 mg/dL (8.5-10.1); Carbon Dioxide 22 mmol/L (21-32); Chloride 107 mmol/L (98-107); GFR African American 52 mL/min; GFR Non-African American 43 mL/min; Glucose 154 mg/dL (74-106); Potassium 4.5 mmol/L (3.5-5.1); Sodium 137 mmol/L (136-145)
[2019-10-01 10:33] LABS: Alkaline Phosphatase 123 U/L (45-117); Bilirubin, Total 0.5 mg/dL (0.2-1.0); Total Protein 6.9 g/dL (6.4-8.2)
[2019-10-01] MEDS ORDERED: PIPERACILLIN-TAZOB 3.375GM 100 ML IV ONE (10:45)
[2019-10-01] MEDS ORDERED: metroNIDAZOLE 500MG/100ML 100 ML IV ONE (10:45)
[2019-10-01 10:58] LABS: Band Neutrophils % (manual) 24; Eosinophils % (manual) 4 (0-7); Lymphocytes % (manual) 7 (10.0-50.0); Metamyelocytes % 1; Monocytes % (manual) 2 (0-12)
[2019-10-01] MEDS ORDERED: SODIUM CHLORIDE 0.9% 1,000 ML IV SCH ×3 (11:15→14:50)
[2019-10-01] MEDS ORDERED: ONDANSETRON HCL 4 MG/2 ML VIAL IV PRN (11:15)
[2019-10-01] MEDS ORDERED: MEPERIDINE HCL (25 MG/ML) 1ML VIAL IM PRN (11:15)
[2019-10-01] MEDS ORDERED: FLUCONAZOLE 200MG/100ML 100 ML IV SCH (11:15)
[2019-10-01] MEDS ORDERED: TACROLIMUS 0.5 MG CAP PO ONE (12:00)
[2019-10-01] MEDS ORDERED: PIPERACILLIN-TAZOB 3.375GM 100 ML IV SCH (12:00)
[2019-10-01 17:29] VITALS: BP 109/69
[2019-10-02] MEDS ORDERED: LEVOTHYROXINE SODIUM 100 MCG/5 ML INJ IV SCH (10:00)
[2019-10-02] MEDS ORDERED: TACROLIMUS 0.5 MG CAP PO SCH (10:00)
== END 2019-10-01 18:10 | disposition short-term general hospital (02) ==
LOC: ER 08:16 → EDBD 08:16 → ER 18:10
DX: K57.32 Diverticulitis of large intestine without perforation or abscess without bleeding (principal); K65.9 Peritonitis, unspecified; I11.0 Hypertensive heart disease with heart failure; I50.9 Heart failure, unspecified; Z86.73 Personal history of transient ischemic attack (TIA), and cerebral infarction without residual deficits
CPT/HCPCS: 36415; 74176; 80053; 81001; 83605; 83690; 84443; 84484; 85007; 85027; 87040; 93005; 96365; 96366; 96367; 96372; 96375; 99291; J1450; J2175; J2405; J2543; J3490

== ENCOUNTER → 2019-12-25 | Outpatient (CLI) | payer MEDICARE, MEDICAID ==
[~2019-12-25] MED LIST changes: -BUM1T PO; +FLUC200T50 PO; -IVAB1.7T PO; +MYCO250C PO; -POTA-220 PO; +PRAV20TA3 PO; -SPIR25TA8 PO; +TACR1GRA PO; +TAM04C PO; -WARF1TAB36 PO
[2019-12-25 15:53] LABS: Urine Blood 1+ /uL (Negative); Urine Specific Gravity 1.019 (1.001-1.035)
[2019-12-25 15:57] LABS: Calcium 9.8 mg/dL (8.5-10.1); Potassium 4.6 mmol/L (3.5-5.1)
[2019-12-25 15:59] LABS: BUN/Creatinine Ratio 26.4
[2019-12-25 16:04] LABS: Basophils # (auto) 0.1 uL; Basophils % (auto) 0.7 % (0.0-2.0); Eosinophils # (auto) 0.3 uL; Eosinophils % (auto) 2.6 % (0.0-7.0); Hematocrit 37.7 % (41.0-53.0); Hemoglobin 12.1 g/dL (13.5-17.5); Lymphocytes # (auto) 1.4 uL; Lymphocytes % (auto) 11.3 % (10.0-50.0); Mean Corpuscular Hemoglobin 27.5 pg (28.0-32.0); Mean Corpuscular Volume 85.9 fL (80.0-100.0); Monocytes # (auto) 1.1 uL; Monocytes % (auto) 8.6 % (0.0-12.0); Neutrophils # (auto) 9.7 uL; Neutrophils % (auto) 76.8 % (37.0-80.0); Platelet Count (auto) 363 10^3/uL (140-450); Red Blood Cells 4.39 10^6/uL (4.5-5.90); Red Cell Distribution Width 17.5 % (11.8-14.3); White Blood Cell 12.6 10^3/uL (4.4-10.8)
== END | disposition home or self-care (01) ==
LOC: LAB 13:30
PROVIDERS: ATTEND Internal Medicine Cardiovascular Disease
DX: D64.9 Anemia, unspecified (principal); N39.0 Urinary tract infection, site not specified
CPT/HCPCS: 36415; 80048; 81003; 85025; 87086; 87088; 87186

== ENCOUNTER 2020-01-15 14:52 | Inpatient (IN) | payer MEDICARE, MEDICAID ==
[~2020-01-15] VITALS: Ht 165.1 cm; Wt 57.9 kg
[2020-01-15] MEDS ORDERED: PANTOPRAZOLE 40 MG/10 ML VIAL INJ IV STA (15:28)
[2020-01-15] MEDS ORDERED: SODIUM CHLORIDE 0.9% 500 ML IVB ONE (15:28)
[2020-01-15] MEDS ORDERED: MORPHINE SULFATE 4 MG/ML SYR/VIAL IV ONE (15:30)
[2020-01-15] MEDS ORDERED: ONDANSETRON HCL 4 MG/2 ML VIAL IV ONE (15:30)
[2020-01-15 15:44] LABS: Hemoglobin 13.4 g/dL (13.5-17.5); Mean Corpuscular Hemoglobin 27.3 pg (28.0-32.0); Mean Corpuscular Hgb Conc. 32.6 g/dL (32.0-36.0); Mean Corpuscular Volume 83.8 fL (80.0-100.0); Platelet Count (auto) 197 10^3/uL (140-450); Red Cell Distribution Width 15.9 % (11.8-14.3)
[2020-01-15 15:47] LABS: Band Neutrophils % (manual) 0; Basophils % (manual) 0 (0.0-2.0); Blast Cells 0; Eosinophils % (manual) 0 (0-7); Metamyelocytes % 0; Myelocytes % 0; Promyelocytes % 0; Reactive Lymphocytes 0
[2020-01-15 16:02] LABS: Lymphocytes % (manual) 1 (10.0-50.0); Monocytes % (manual) 6 (0-12)
[2020-01-15 16:04] LABS: Albumin 3.7 g/dL (3.4-5.0); BUN/Creatinine Ratio 26.2; Calcium 9.4 mg/dL (8.5-10.1)
[2020-01-15 16:06] LABS: Bilirubin, Total 0.3 mg/dL (0.2-1.0); Total Protein 7.9 g/dL (6.4-8.2)
[2020-01-15] MEDS ORDERED: MORPHINE SULF INJ 2 MG/ML SYRINGE 1ML IV PRN (21:45)
[2020-01-15] MEDS ORDERED: HYDROmorphone HCL 2 MG/ML VL IV PRN (21:45)
[2020-01-15] MEDS ORDERED: NITROGLYCERIN 0.4 MG SL TAB SL PRN (21:45)
[2020-01-15] MEDS ORDERED: ONDANSETRON HCL 4 MG/2 ML VIAL IV PRN (21:45)
[2020-01-15] MEDS ORDERED: ATORVASTATIN 20 MG TAB PO SCH (22:00)
[2020-01-15] MEDS ORDERED: SACUBITRIL-VALSARTAN 24mg/26mg TAB PO SCH (22:00)
[2020-01-15] MEDS ORDERED: FLUCONAZOLE 200 MG PO SCH (22:00)
[2020-01-15] MEDS: ATORVASTATIN 20 MG TAB PO SCH (22:32)
[2020-01-15] MEDS: PIPERACILLIN-TAZO 4.5GM 100 ML IV SCH (22:32)
[2020-01-15] MEDS: ALPRAZolam 0.5 MG TAB PO SCH (22:52)
[2020-01-15] MEDS: CARVEDILOL 3.125 MG TAB PO SCH (22:53)
[2020-01-15] MEDS: FLUCONAZOLE 100 MG TAB PO SCH (23:00)
[2020-01-15 23:13] VITALS: BP 127/77
[2020-01-15] MEDS: MYCOPHENOLATE 250 MG CAP PO SCH (23:15)
--- NOTE | 2020-01-15 23:30 | NUR ---
Medication not available Cellcept not available to give, was due at 2200 and came up from ER. Medication had not been received. Will call pharmacy in the morning to send for morning medication pass.
--- NOTE | 2020-01-15 23:30 | NUR ---
Received pt from ER. pt came up in a gurney from ER. Pt reports no S/S of SOB or pain. Pt has a colostomy bag on his lower right abdomen that was changed before arrival. Pt is on a clear liquid diet. No abnormalities noted. Oriented pt to floor and unit, instructed pt to call for assistance, bed in lowest possible position with bed rails up x2, call light within reach. Will continue to monitor. Addendum: 01/16/20 at 0126 by Lindsey Casas RN tele box #[id number] and telemetry reading on arrival to unit is SR in the 90s. Patient on room air, weighed by bed scale and encouraged to call if they need something. All questions and concerns addressed, patient verbalized understanding.
[2020-01-16] VITALS (8 sets, daily range): BP systolic 92–143; BP diastolic 59–88
[2020-01-16] MEDS ORDERED: ASPI-404 PO (02:15)
[2020-01-16] MEDS: ALPRAZolam 0.5 MG TAB PO SCH ×3 (06:29→21:40)
[2020-01-16] MEDS: PIPERACILLIN-TAZO 4.5GM 100 ML IV SCH ×3 (06:29→21:40)
[2020-01-16] MEDS: LEVOTHYROXINE SODIUM 88 MCG TAB PO SCH (06:30)
--- NOTE | 2020-01-16 07:01 | NUR ---
Closing note Pt in lowest possible position, bed rails up x2, call light within reach. pt does not complain of pain, and slept well through the night. Will endorse to day shift.
--- NOTE | 2020-01-16 08:00 | NUR ---
ASSESSMENT NOTE PT IS ALERT ORIENTED X4, RESTING IN BED IN LOWFOWLER POSITION, ABLE TO SELF REPOSITION AND VERBALIS HIS NEEDS, PAIN 0/10, RT LOWER COLOSTOMY BAG NOTED WITH LOOSE BM, MID LINE LOWER ABDOMEN HEALED INCISION IN PROCESS OF COMPLETELY HEALING, NO SIGNS OF INFECTION NOTED, DRESSING IS CLEAN AND INTACT, FALL RISK PRECAUTIONS AT ALL TIMES, CALL LIGHT WITHIN REACH
[2020-01-16] MEDS: PANTOPRAZOLE 40 MG/10 ML VIAL INJ IV SCH (09:21)
[2020-01-16] MEDS: TACROLIMUS 0.5 MG CAP PO SCH (09:22)
[2020-01-16] MEDS: CARVEDILOL 3.125 MG TAB PO SCH ×2 (09:23→21:48)
[2020-01-16] MEDS: CHOLECALCIFEROL (VITD3) 1,000IU=25mCg TAB PO SCH (09:24)
[2020-01-16] MEDS: MYCOPHENOLATE 250 MG CAP PO SCH ×2 (09:58→21:40)
[2020-01-16] MEDS: FLUCONAZOLE 100 MG TAB PO SCH ×2 (10:00→21:45)
[2020-01-16] MEDS ORDERED: TAMSULOSIN HYDROCHLORIDE 0.4 MG CAP PO SCH ×2 (10:00→18:00)
--- NOTE | 2020-01-16 11:00 | NUR ---
FAMILY ,DAUGHTER, AND GRANDSON AT BED SIDE
[2020-01-16 16:14] LABS: Urine WBC None Seen /hpf (0 - 3)
[2020-01-16 16:50] LABS: Urine Bacteria NONE SEEN /hpf (None Seen); Urine Blood Negative /uL (Negative); Urine Specific Gravity 1.018 (1.001-1.035)
[2020-01-16 17:27] LABS: Basophils # (auto) 0.1 10 ^3/uL (0-0.2); Basophils % (auto) 0.5 % (0.0-2.0); Eosinophils # (auto) 0.4 10 ^3/uL (0-0.8); Eosinophils % (auto) 2.7 % (0.0-7.0); Hematocrit 37.8 % (41.0-53.0); Hemoglobin 12.2 g/dL (13.5-17.5); Lymphocytes # (auto) 1.4 10 ^3/uL (0.4-5.4); Lymphocytes % (auto) 10.3 % (10.0-50.0); Mean Corpuscular Hemoglobin 27.1 pg (28.0-32.0); Mean Corpuscular Hgb Conc. 32.3 g/dL (32.0-36.0); Mean Corpuscular Volume 83.9 fL (80.0-100.0); Monocytes # (auto) 0.8 10 ^3/uL (0-1.3); Monocytes % (auto) 5.9 % (0.0-12.0); Neutrophils # (auto) 10.8 10 ^3/uL (1.6-8.6); Neutrophils % (auto) 80.6 % (37.0-80.0); Nucleated Red Blood Cells % 0.1 %; Platelet Count (auto) 180 10^3/uL (140-450); Red Cell Distribution Width 15.6 % (11.8-14.3); White Blood Cell 13.4 10^3/uL (4.4-10.8)
--- NOTE | 2020-01-16 17:58 | NUR ---
FLOMAX PT STATED DR MULLIGAN TOLD ME I HAVE TO TAKE 2 NOT ONE, NEW ORDERS OBTAIN
[2020-01-16] MEDS ORDERED: TAMSULOSIN HYDROCHLORIDE 0.4 MG CAP PO ONE (18:00)
--- NOTE | 2020-01-16 18:00 | NUR ---
PATIENT'S REMAIN AT BED SIDE
--- NOTE | 2020-01-16 18:39 | NUR ---
PT CONTINUE STABLE, NO DISTRESS NOTED, SITTING UP EATING DINNER, CONTINUE MONITORING
--- NOTE | 2020-01-16 19:00 | NUR ---
Opening Shift Note Assumed care of patient, awake and alert. at bedside. No S/S of distress/SOB or pain. Instructed on POC and to call for assist PRN, will continue to monitor for changes Q1hr and PRN. Took pictures of abdominal incision, and changed dressing. Wound consult to be put in.
[2020-01-16] MEDS: ATORVASTATIN 20 MG TAB PO SCH (21:40)
[2020-01-17] VITALS (7 sets, daily range): BP systolic 94–110; BP diastolic 64–75
--- NOTE | 2020-01-17 02:33 | NUR ---
New colostomy bag applied pt was sleeping when the colostomy bag exploded. Cleaned pt and changed out colostomy bag. will continue to monitor.
[2020-01-17] MEDS: PIPERACILLIN-TAZO 4.5GM 100 ML IV SCH ×3 (06:01→22:16)
[2020-01-17] MEDS: ALPRAZolam 0.5 MG TAB PO SCH ×3 (06:01→22:00)
[2020-01-17] MEDS: LEVOTHYROXINE SODIUM 88 MCG TAB PO SCH (06:24)
--- NOTE | 2020-01-17 06:50 | NUR ---
Closing note. Pt in lowest possible position with bed rails up x2, call light within reach. Pt is not complaining of pain, will endorse to day shift RN.
[2020-01-17] MEDS ORDERED: TAMS0.4C36 PO (07:38)
[2020-01-17] MEDS: PANTOPRAZOLE 40 MG/10 ML VIAL INJ IV SCH (09:40)
[2020-01-17] MEDS: MYCOPHENOLATE 250 MG CAP PO SCH ×2 (09:41→22:16)
[2020-01-17] MEDS: FLUCONAZOLE 100 MG TAB PO SCH ×2 (09:41→22:18)
[2020-01-17] MEDS: CHOLECALCIFEROL (VITD3) 1,000IU=25mCg TAB PO SCH (09:41)
[2020-01-17] MEDS: TACROLIMUS 0.5 MG CAP PO SCH (09:41)
[2020-01-17] MEDS: CARVEDILOL 3.125 MG TAB PO SCH ×2 (09:41→22:18)
--- NOTE | 2020-01-17 10:30 | NUR ---
COLOSTOMY IS LEAKING, REMOVED THE OLD COLOSTOMY GENTLY,PAT IT SKIN AROUND THE STOMA WITH WARM WET TOWEL, PAT IT TO DRY, A VERY TINY SMALL SKIN ULCERATION NOTED AT THE 9 O'CLOCK, PT STATED ITS BEEN 2 WEEKS > CALAVON SWAPS AROUND THE STOMA APPLIED, NEW COLOSTOMY APPLIED, PATIENT TOLERATED WELL
--- NOTE | 2020-01-17 11:24 | NUR ---
WOUND CARE NOTE: Wound care into see patient per wound care request regarding abdominal wound/incision that are noted upon admission. Bedside nurse took photograph of patient's wound upon admission for reference. Patient is 69 years old male with admitting diagnosis of Small Bowel Obstruction, Diverticulitis. Patient is resting in bed in Rm. 231A. Patient is awake, alert and oriented. Patient is in no stated pain at this time. He's ambulatory and self turning and repositioning. His Costa score is 22. Patient has history of abdominal surgery "four months ago at [facility]". Patient has 15cm scarred incision to medial abdomen with 4x0.8cm (no measurable depth) remaining open area at center. Wound bed is red,clean with granulation tissue noted. Marisa wound is pink and brown pigmented, scant serous drainage noted, no odor noted. Patient reported that he used to have home health nurse that go to his house and changes the dressing but discontinued lately as wound is now getting better. He added that he does the daily wound dressing himself. Cleansed patient's abdominal wound with NS, patted dry with gauze, applied petrolatum gauze along open wound bed area, covered with Telfa, secured with paper tape. Patient tolerated well. Patient denies any other wound. Bed in low position , call caal on hand with all safety precautions in placed. No further wound care monitoring needed at this time. RECOMMENDATION: Nursing to continue with Daily/PRN dressing change to abdominal per MD order, Dietary consult due to wound, reconsult for active wound, pressure injury, low Costa score of 12 and below. Addendum: 01/17/20 at 1630 by Nadia Browne RN Amended: Links added.
--- NOTE | 2020-01-17 14:00 | NUR ---
WOUND NURSE FRANKY RN AT BED SIDE, WITH DRESSING CHANGE AND SKIN ASSESSMENT
--- NOTE | 2020-01-17 15:00 | NUR ---
FAMILY PATIENT'S AT BED SIDE
[2020-01-17] MEDS ORDERED: FINA5TAB4 PO (16:45)
[2020-01-17] MEDS ORDERED: PANT40T PO (16:45)
[2020-01-17] MEDS ORDERED: CHOL50007 PO (16:45)
[2020-01-17] MEDS ORDERED: LEVO100T8 PO (16:45)
[2020-01-17] MEDS ORDERED: MAGN250T3 PO (16:51)
--- NOTE | 2020-01-17 17:00 | NUR ---
PT IS SLEEPY, NO DISTRESS NOTED, AT BED SIDE
[2020-01-17] MEDS: TAMSULOSIN HYDROCHLORIDE 0.4 MG CAP PO SCH (17:38)
--- NOTE | 2020-01-17 18:33 | NUR ---
PT CONTINUE STABLE, CONTINUE MONITORING
--- NOTE | 2020-01-17 19:35 | NUR ---
RECEIVED PATIENT FROM DAY SHIFT RN. PATIENT RESTING IN BED AND EATING DINNER. NO S/S OF DISTRESS NOTED. DENIED PAIN FOR NOW. COLOSTOMY DRAINING GRAVITY WITH DRESSING C/D/I. POC INSTRUCTED AND ENCOURAGED PATIENT TO CALL FOR GOVERNMENT SERVICES PROFESSIONAL IF NEEDED. BED IN LOWEST POSITION WITH SIDE RAILS UP X 2. CALL STOKES WITHIN REACH. ALARM ON. CONTINUE TO MONITOR FOR CHANGES Q1H AND PRN.
[2020-01-17] MEDS: ATORVASTATIN 20 MG TAB PO SCH (22:18)
--- NOTE | 2020-01-17 22:26 | NUR ---
EMPTIED COLOSTOMY 250 ML LIQUID BROWN STOOL. CONTINUE TO MONITOR.
--- NOTE | 2020-01-17 23:20 | NUR ---
REASSESSED BP 105/75, HR 66. CONTINUE CARE.
[2020-01-18] VITALS (8 sets, daily range): BP systolic 92–128; BP diastolic 61–85
--- NOTE | 2020-01-18 03:41 | NUR ---
REPORT GIVEN TO CAROLANN JIMÉNEZ.
--- NOTE | 2020-01-18 03:49 | NUR ---
Assumed care of patient after report received from Noa JIMÉNEZ. Patient is resting in bed and has no S/S of distress/SOB or pain.
[2020-01-18] MEDS: ALPRAZolam 0.5 MG TAB PO SCH ×3 (06:00→22:00)
[2020-01-18 06:19] LABS: Basophils # (auto) 0.1 10 ^3/uL (0-0.2); Basophils % (auto) 0.9 % (0.0-2.0); Eosinophils # (auto) 0.5 10 ^3/uL (0-0.8); Eosinophils % (auto) 6.5 % (0.0-7.0); Hematocrit 37.4 % (41.0-53.0); Hemoglobin 12.4 g/dL (13.5-17.5); Lymphocytes # (auto) 0.9 10 ^3/uL (0.4-5.4); Lymphocytes % (auto) 12.3 % (10.0-50.0); Mean Corpuscular Hemoglobin 27.8 pg (28.0-32.0); Mean Corpuscular Hgb Conc. 33.2 g/dL (32.0-36.0); Mean Corpuscular Volume 83.7 fL (80.0-100.0); Monocytes # (auto) 0.6 10 ^3/uL (0-1.3); Monocytes % (auto) 9.2 % (0.0-12.0); Neutrophils % (auto) 71.1 % (37.0-80.0); Platelet Count (auto) 183 10^3/uL (140-450); Red Blood Cells 4.47 10^6/uL (4.5-5.90); Red Cell Distribution Width 15.1 % (11.8-14.3)
[2020-01-18] MEDS: PIPERACILLIN-TAZO 4.5GM 100 ML IV SCH ×3 (06:30→14:36)
[2020-01-18 06:34] LABS: Albumin 2.9 g/dL (3.4-5.0); Calcium 8.9 mg/dL (8.5-10.1); Potassium 4.2 mmol/L (3.5-5.1)
[2020-01-18] MEDS: LEVOTHYROXINE SODIUM 88 MCG TAB PO SCH (06:36)
[2020-01-18 06:38] LABS: BUN/Creatinine Ratio 14.9; Bilirubin, Total 0.2 mg/dL (0.2-1.0); Total Protein 7.2 g/dL (6.4-8.2)
--- NOTE | 2020-01-18 06:47 | NUR ---
Pharmacy notified that bag of Zosyn for 1400 01/17/19 had to be pulled this morning due to leakage of Zosyn meant for 0600 AM 01/17/19.
--- NOTE | 2020-01-18 07:00 | NUR ---
CLOSING NOTE Patient is on room air. Respirations even and unlabored. Patient has no S/S of distress/SOB or pain. Dressing to abdomen is clean, dry, and intact.
--- NOTE | 2020-01-18 08:00 | NUR ---
ASSESSMENT NOTE PT IS ALERT ORIENTED X4, RESTING IN BED IN LOWFOWLER POSITION, ABLE TO SELF REPOSITION AND VERBALIS HIS NEEDS, PAIN 0/10, RT LOWER COLOSTOMY BAG NOTED WITH LOOSE BM, MID LINE LOWER ABDOMEN HEALED INCISION IN PROCESS OF COMPLETELY HEALING, NO SIGNS OF INFECTION NOTED, DRESSING IS CLEAN AND INTACT, FALL RISK PRECAUTIONS AT ALL TIMES, CALL LIGHT WITHIN REACH PT APPEAR MORE AWAKE AND ENERGETIC, STATED I DON'T KNOW WHY I WAS SO SLEEPY YESTERDAY> SUPPORT GIVEN TO PT
--- NOTE | 2020-01-18 09:00 | NUR ---
COLOSTOMY CARE IS FULLY AND LEAKING, NEW COLOSTOMY APPLIED AFTER SKIN CARE AROUND THE STOMA GIVEN, PT TOLERATED WELL
[2020-01-18] MEDS: PANTOPRAZOLE 40 MG/10 ML VIAL INJ IV SCH (10:06)
[2020-01-18] MEDS: FLUCONAZOLE 100 MG TAB PO SCH ×2 (10:07→22:52)
[2020-01-18] MEDS: CHOLECALCIFEROL (VITD3) 1,000IU=25mCg TAB PO SCH (10:07)
[2020-01-18] MEDS: CARVEDILOL 3.125 MG TAB PO SCH ×2 (10:08→22:51)
[2020-01-18] MEDS: TACROLIMUS 0.5 MG CAP PO SCH (10:12)
[2020-01-18] MEDS: MYCOPHENOLATE 250 MG CAP PO SCH ×2 (10:12→22:50)
--- NOTE | 2020-01-18 11:00 | NUR ---
FAMILY PATIENT'S AT BED SIDE
--- NOTE | 2020-01-18 11:30 | NUR ---
NUTRITION CONSULT/ASSESSMENT NOTES Please refer to link notes of nutrition screen form filed under the intervention section of the plan of care for further details. Est. Needs: 1800 kcal to 2100 kcal (30-35 kcal/kgBW), 48 gms to 60 gms pro (0.8-1.0 gms/kgBW). Will continue to monitor pertinent labs and reassess nutrient needs prn Thank you for this consult. Addendum: 01/18/20 at [address] Amended: Links added.
--- NOTE | 2020-01-18 15:57 | NUR ---
DR RODRIGUES AT BED SIDE FOLLOWING UP ON PT, DR RODRIGUES SAT DOWN WITH PT EDUCATING PT REGARDING [employer] AND PROBIOTICS A NORMAL GOOD BACTERIA TO FIGHT INFECTION AND ITS IMPORTANT TO GO OVER TO DR RODRIGUES 'S OFFICE FOR ANY CHANGE OF HEALTH CONDITION AND NOT WAIT FOR LONG TIME, DR RODRIGUES ALSO ENCOURAGE PT TO BUY PROBIOTICS FROM OVER THE COUNTER AND TAKE 2 TAB A DAY, PATIENT'S GRANDDAUGHTER AT BED SIDE RECONFIRM IT BY ME WITH HER
--- NOTE | 2020-01-18 16:05 | NUR ---
DR RODRIGUES IS BACK TO PT ROOM AFTER PATIENT'S RETURN BACK, DR RODRIGUES WENT THROUGH ALL PATIENT'S LABS, CT SCANS, LIFE STYLE, TRAVELLING, EXPECTING OUTCOMES, ALSO REENFORCE BUYING THE PROBIOTICS AND EXPLAIN WHY...., DR RODRIGUES DID ANSWER ALL PT AND QUESTIONS FOR 30 MIN
--- NOTE | 2020-01-18 18:25 | NUR ---
WOUND CARE DONE DIRECTED, PT TOLERATED WELL, NO SIGNS OF INFECTION NOTED
[2020-01-18] MEDS: TAMSULOSIN HYDROCHLORIDE 0.4 MG CAP PO SCH (18:32)
--- NOTE | 2020-01-18 18:38 | NUR ---
PT IS SITTING UP EATING DINNER, AT BED SIDE
--- NOTE | 2020-01-18 19:20 | NUR ---
Opening Shift Note Assumed care of patient, awake and alert. No S/S of distress/SOB or pain. Instructed on POC and to call for assist PRN, will continue to monitor for changes Q1hr and PRN. PATIENT RESTING IN BED, WITH BED IN THE LOWEST POSITION, SIDE RALES UP X2, CALL LIGHT AT SIDE WITHIN REACH.
[2020-01-18] MEDS: ATORVASTATIN 20 MG TAB PO SCH (22:52)
[2020-01-18] MEDS ORDERED: PIPERACILLIN-TAZO 4.5GM 200 ML IV ONE (22:55)
[2020-01-19] MEDS: PIPERACILLIN-TAZO 4.5GM 100 ML IV SCH ×4 (02:04→23:12)
[2020-01-19 05:38] VITALS: BP 93/61
[2020-01-19] MEDS: ALPRAZolam 0.5 MG TAB PO SCH ×4 (06:00→22:00)
[2020-01-19] MEDS: LEVOTHYROXINE SODIUM 88 MCG TAB PO SCH (06:32)
--- NOTE | 2020-01-19 07:50 | NUR ---
Opening Shift Note Assumed care of patient, awake and alert. No S/S of distress/SOB or pain. Instructed on POC and to call for assist PRN. Bed at lowest locked position and zonia light within reach. Will continue to monitor for changes Q1hr and PRN.
[2020-01-19 08:00] VITALS: BP 102/70
[2020-01-19 09:32] VITALS: BP 102/70
[2020-01-19] MEDS: FLUCONAZOLE 100 MG TAB PO SCH ×2 (10:00→22:01)
[2020-01-19] MEDS: PANTOPRAZOLE 40 MG/10 ML VIAL INJ IV SCH (10:27)
[2020-01-19] MEDS: TACROLIMUS 0.5 MG CAP PO SCH (10:28)
[2020-01-19] MEDS: CARVEDILOL 3.125 MG TAB PO SCH ×2 (10:29→22:01)
[2020-01-19] MEDS: CHOLECALCIFEROL (VITD3) 1,000IU=25mCg TAB PO SCH (10:30)
[2020-01-19] MEDS: MYCOPHENOLATE 250 MG CAP PO SCH ×2 (10:31→22:04)
[2020-01-19 13:00] VITALS: BP 119/80
[2020-01-19 15:00] LABS: Basophils # (auto) 0.1 10 ^3/uL (0-0.2); Basophils % (auto) 1.1 % (0.0-2.0); Eosinophils # (auto) 0.6 10 ^3/uL (0-0.8); Eosinophils % (auto) 7.9 % (0.0-7.0); Hematocrit 42.1 % (41.0-53.0); Lymphocytes # (auto) 1.4 10 ^3/uL (0.4-5.4); Lymphocytes % (auto) 17.3 % (10.0-50.0); Mean Corpuscular Hemoglobin 27.9 pg (28.0-32.0); Mean Corpuscular Hgb Conc. 33.3 g/dL (32.0-36.0); Mean Corpuscular Volume 83.6 fL (80.0-100.0); Monocytes # (auto) 0.7 10 ^3/uL (0-1.3); Monocytes % (auto) 8.7 % (0.0-12.0); Neutrophils # (auto) 5.2 10 ^3/uL (1.6-8.6); Platelet Count (auto) 233 10^3/uL (140-450); Red Blood Cells 5.04 10^6/uL (4.5-5.90); Red Cell Distribution Width 15.4 % (11.8-14.3)
[2020-01-19 15:06] LABS: Albumin 3.7 g/dL (3.4-5.0); Calcium 9.3 mg/dL (8.5-10.1); Potassium 4.8 mmol/L (3.5-5.1)
[2020-01-19 15:11] LABS: BUN/Creatinine Ratio 16.7; Bilirubin, Total 0.2 mg/dL (0.2-1.0); Total Protein 8.8 g/dL (6.4-8.2)
[2020-01-19 16:51] VITALS: BP 126/82
[2020-01-19] MEDS: TAMSULOSIN HYDROCHLORIDE 0.4 MG CAP PO SCH (18:04)
--- NOTE | 2020-01-19 19:46 | NUR ---
Patient is comfortably resting in bed. No s/s of distress/sob noted. Report given to NOC RN
[2020-01-19 22:00] VITALS: BP 106/68
[2020-01-19] MEDS: ATORVASTATIN 20 MG TAB PO SCH (22:01)
--- NOTE | 2020-01-19 22:45 | NUR ---
Colostomy bag changed due to leaking, partial linen change, and gown changed
--- NOTE | 2020-01-19 23:00 | NUR ---
Wound Care Abdominal dressing changed, area cleansed with cleanser, no drainage, healed incision, patted dry with sterile gauze, oil dressing applied, covered with telfa and medipore tape.
--- NOTE | 2020-01-19 23:05 | NUR ---
IV insertion IV access obtained, via clean sterile technique by inserting 22 gauge catheter at left forearm after 3 attempt(s). IV secured properly. No trauma to site. Patient tolerated well. NOTE:
--- NOTE | 2020-01-20 03:50 | NUR ---
Rounds Patient sleeping. No S/S of distress/SOB or pain. Will continue to monitor changes q1hr and PRN.
[2020-01-20 05:00] VITALS: BP 99/66
[2020-01-20] MEDS: ALPRAZolam 0.5 MG TAB PO SCH ×3 (05:49→21:58)
[2020-01-20] MEDS: PIPERACILLIN-TAZO 4.5GM 100 ML IV SCH ×3 (05:57→21:53)
[2020-01-20] MEDS: LEVOTHYROXINE SODIUM 88 MCG TAB PO SCH (05:57)
--- NOTE | 2020-01-20 07:45 | NUR ---
OPENING NOTE Patient is comfortably resting in bed, on room air, no s/s of distress/sob noted sated. Bed at lowest locked position and call light within reach. Instructed patient on POC. Patient verbalized understanding. Will continue to monitor.
[2020-01-20 08:00] VITALS: BP 105/74
[2020-01-20] MEDS: FLUCONAZOLE 100 MG TAB PO SCH ×2 (08:57→21:52)
[2020-01-20 09:00] VITALS: BP 105/74
[2020-01-20] MEDS: TACROLIMUS 0.5 MG CAP PO SCH (10:14)
[2020-01-20] MEDS: PANTOPRAZOLE 40 MG/10 ML VIAL INJ IV SCH (10:14)
[2020-01-20] MEDS: MYCOPHENOLATE 250 MG CAP PO SCH ×2 (10:15→21:52)
[2020-01-20] MEDS: CHOLECALCIFEROL (VITD3) 1,000IU=25mCg TAB PO SCH (10:15)
[2020-01-20] MEDS: CARVEDILOL 3.125 MG TAB PO SCH ×2 (10:16→21:52)
--- NOTE | 2020-01-20 10:30 | NUR ---
Colostomy bag changed due to leaking, partial linen change, and gown changed. Patient tolerated well.
--- NOTE | 2020-01-20 10:30 | NUR ---
Wound Care Abdominal dressing changed, area cleansed with cleanser, no drainage, healed incision, patted dry with sterile gauze, oil dressing applied, covered with Telfa and Medipore tape. Patient tolerated well.
[2020-01-20 13:00] VITALS: BP 120/86
[2020-01-20 17:00] VITALS: BP 115/69
[2020-01-20] MEDS: TAMSULOSIN HYDROCHLORIDE 0.4 MG CAP PO SCH (18:28)
[2020-01-20 20:00] VITALS: BP 98/63
[2020-01-20] MEDS: ATORVASTATIN 20 MG TAB PO SCH (21:52)
--- NOTE | 2020-01-20 23:40 | NUR ---
Colostomy bag changed Colostomy bag changed due to leaking, skin care provided, stoma red, irritation present. Skin care provided.New bag placed, pt tolerated well, new gown and briefs provided.
--- NOTE | 2020-01-20 23:45 | NUR ---
WOUND CARE Changed abdominal dressing due to leaking colostomy, dressing soiled underneath. Area cleansed with wound cleanser, patted dry with sterile gauze, oil dressing applied, no petroleum dressing available, covered with telfa, and abd pad for preventive measure from leaking colostomy, secured with paper tape, area irritated from adhesive. Will continue to monitor
--- NOTE | 2020-01-21 03:33 | NUR ---
Rounds Patient sleeping, respirations even and unlabored. No S/S of distress/SOB or pain. Will continue to monitor changes q1hr and PRN.
[2020-01-21 05:00] VITALS: BP 113/68
[2020-01-21] MEDS: ALPRAZolam 0.5 MG TAB PO SCH ×2 (06:00→13:54)
--- NOTE | 2020-01-21 06:00 | NUR ---
Colostomy bag emptied
[2020-01-21] MEDS: LEVOTHYROXINE SODIUM 88 MCG TAB PO SCH (06:31)
[2020-01-21] MEDS: PIPERACILLIN-TAZO 4.5GM 100 ML IV SCH ×2 (06:31→13:53)
--- NOTE | 2020-01-21 07:01 | NUR ---
OPENING SHIFT NOTE Assumed care of patient from labor specialist RN. Patient is alert and oriented x4, no signs of distress noted. Patient was updated on the plan of care and verbalized understanding. Dressing noted to the medial abdomen, clean dry and intact, colostomy draining, no leaking noted. Bed is locked, in the lowest position, side rails up x2 and call light is in reach. Patient was encouraged to call for assistance as needed.
[2020-01-21 09:09] VITALS: BP 108/78
--- NOTE | 2020-01-21 09:47 | NUR ---
COLOSTOMY BAG CHANGED due to leaking. Skin care complete, stoma is red and irritated. partial linen change completed. New colostomy bag placed, Abdominal dressing soiled, changed as ordered. Patient tolerated well. Will continue to monitor.
[2020-01-21] MEDS: PANTOPRAZOLE 40 MG/10 ML VIAL INJ IV SCH (10:16)
[2020-01-21] MEDS: TACROLIMUS 0.5 MG CAP PO SCH (10:17)
[2020-01-21] MEDS: CHOLECALCIFEROL (VITD3) 1,000IU=25mCg TAB PO SCH (10:17)
[2020-01-21] MEDS: CARVEDILOL 3.125 MG TAB PO SCH (10:18)
[2020-01-21] MEDS: FLUCONAZOLE 100 MG TAB PO SCH (10:19)
[2020-01-21] MEDS: MYCOPHENOLATE 250 MG CAP PO SCH (10:19)
[2020-01-21 13:00] VITALS: BP 98/74
--- NOTE | 2020-01-21 14:41 | NUR ---
DR RODRIGUES PAGED for order clarification, awaiting call back.
--- NOTE | 2020-01-21 15:12 | NUR ---
Call back from [facility] telephone order to discharge patient.
[2020-01-21 15:46] VITALS: BP 98/74
--- NOTE | 2020-01-21 16:19 | NUR ---
DISCHARGE Discharge instructions given as ordered. Encourage to follow up with PMD as instructed. All questions and concerns addressed. Patient verbalized understanding. Medication reconciliation form completed and copy given to patient.IV removed with catheter intact, pressure dressing applied, Telemetry unit returned to ICU. Patient taken to vehicle via wheelchair with all personal belongings, accompanied by staff and family member. No distress noted at time of departure.
== END 2020-01-21 15:19 | disposition home or self-care (01) | DRG 872 ==
LOC: EDBD 14:52 → ER 14:52 → TELE 14:53 → TELE-EAST 23:13
PROVIDERS: ADMIT Internal Medicine Cardiovascular Disease; ATTEND Internal Medicine Cardiovascular Disease
DX: A41.9 Sepsis, unspecified organism (principal); I25.811 Atherosclerosis of native coronary artery of transplanted heart without angina pectoris; N17.9 Acute kidney failure, unspecified; A09 Infectious gastroenteritis and colitis, unspecified; I13.0 Hypertensive heart and chronic kidney disease with heart failure and stage 1 through stage 4 chronic kidney disease, or unspecified chronic kidney disease; K57.32 Diverticulitis of large intestine without perforation or abscess without bleeding; D73.5 Infarction of spleen; N40.0 Benign prostatic hyperplasia without lower urinary tract symptoms; D64.9 Anemia, unspecified; N18.9 Chronic kidney disease, unspecified; I50.9 Heart failure, unspecified; I25.2 Old myocardial infarction; Z93.3 Colostomy status; Z79.899 Other long term (current) drug therapy; Z80.0 Family history of malignant neoplasm of digestive organs; Z82.61 Family history of arthritis; Z82.5 Family history of asthma and other chronic lower respiratory diseases; Z82.49 Family history of ischemic heart disease and other diseases of the circulatory system
CPT/HCPCS: 36415; 74176; 80053; 81001; 83690; 85007; 85025; 85027; 87081; 87086; 96361; 96374; 96375; C9113; G0378; J2405; J2543; J7517

== ENCOUNTER → 2020-05-14 | Outpatient (CLI) | payer MEDICARE, MEDICAID ==
[~2020-05-14] MED LIST changes: +ASPI-404 PO; -CHOL20007 PO; +CHOL50007 PO; +FINA5TAB4 PO; +LEVO100T8 PO; -LEVO88TA4 PO; +MAGN250T3 PO; +PANT40T PO; -PRAV20TA3 PO; -TACR1GRA PO; -TAM04C PO; +TAMS0.4C36 PO
== END | disposition home or self-care (01) ==
LOC: Rad HDHVI 11:18
PROVIDERS: ATTEND Internal Medicine Cardiovascular Disease
DX: R07.9 Chest pain, unspecified (principal)
CPT/HCPCS: 71100

== ENCOUNTER → 2020-08-27 | Outpatient (CLI) | payer MEDICARE, MEDICAID ==
[~2020-08-27] MED LIST changes: -ASPI-404 PO; +ASPI-543 PO
== END | disposition home or self-care (01) ==
LOC: Rad HDHVI 09:54
PROVIDERS: ATTEND Internal Medicine Cardiovascular Disease
DX: I08.8 Other rheumatic multiple valve diseases (principal); I42.0 Dilated cardiomyopathy; I20.9 Angina pectoris, unspecified; I27.20 Pulmonary hypertension, unspecified
CPT/HCPCS: 93306

== ENCOUNTER → 2020-09-08 | Outpatient (CLI) | payer MEDICARE, MEDICAID ==
[~2020-09-08] VITALS: Ht 165.1 cm; Wt 67.1 kg
[~2020-09-08] MED LIST changes: +ADENOSINE 56 MG in GIVE UN-DILUTED 0 ML IV ONE
== END | disposition home or self-care (01) ==
LOC: Rad HDHVI 08:48
PROVIDERS: ATTEND Internal Medicine Cardiovascular Disease
DX: E78.00 Pure hypercholesterolemia, unspecified (principal); I10 Essential (primary) hypertension; R06.02 Shortness of breath
CPT/HCPCS: 78452; 93017; 96374; A9500; J0153

== ENCOUNTER → 2020-09-09 | Outpatient (CLI) | payer MEDICARE, MEDICAID ==
[~2020-09-09] MED LIST changes: -ADENOSINE 56 MG in GIVE UN-DILUTED 0 ML IV ONE
[2020-09-09 11:56] LABS: Basophils # (auto) 0 10 ^3/uL (0-0.2); Eosinophils # (auto) 0.2 10 ^3/uL (0-0.8); Mean Corpuscular Volume 77.2 fL (80.0-100.0); Monocytes # (auto) 0.5 10 ^3/uL (0-1.3); White Blood Cell 5.9 10^3/uL (4.4-10.8)
[2020-09-09 11:59] LABS: Basophils % (auto) 0.6 % (0.0-2.0); Hemoglobin 14.1 g/dL (13.5-17.5); Lymphocytes # (auto) 1.4 10 ^3/uL (0.4-5.4); Lymphocytes % (auto) 23.4 % (10.0-50.0); Mean Corpuscular Hemoglobin 25.4 pg (28.0-32.0); Mean Corpuscular Hgb Conc. 32.9 g/dL (32.0-36.0); Neutrophils # (auto) 3.8 10 ^3/uL (1.6-8.6); Nucleated Red Blood Cells % 0.1 %; Platelet Count (auto) 231 10^3/uL (140-450); Red Blood Cells 5.57 10^6/uL (4.5-5.90); Red Cell Distribution Width 16.9 % (11.8-14.3)
[2020-09-09 12:09] LABS: Urine Blood Negative /uL (Negative); Urine Specific Gravity 1.016 (1.001-1.035)
[2020-09-09 12:11] LABS: Albumin 4.3 g/dL (3.4-5.0); Calcium 9.3 mg/dL (8.5-10.1)
[2020-09-09 12:14] LABS: Free T4 (Free Thyroxine) 1.07 ng/dL (0.89-1.76); Prostate Specific Antigen 0.46 ng/mL (0.0-4.0)
[2020-09-09 12:15] LABS: BUN/Creatinine Ratio 14.2; Bilirubin, Total 0.7 mg/dL (0.2-1.0); Total Protein 8.3 g/dL (6.4-8.2)
[2020-09-09 14:16] LABS: Potassium 2.9 mmol/L (3.5-5.1)
== END | disposition home or self-care (01) ==
LOC: LAB 08:02
PROVIDERS: ATTEND Internal Medicine Cardiovascular Disease
DX: Z51.81 Encounter for therapeutic drug level monitoring (principal); C61 Malignant neoplasm of prostate; D64.9 Anemia, unspecified; E11.9 Type 2 diabetes mellitus without complications; E55.9 Vitamin D deficiency, unspecified; I10 Essential (primary) hypertension; R00.2 Palpitations; R53.1 Weakness; R30.0 Dysuria; D51.3 Other dietary vitamin B12 deficiency anemia; Z79.899 Other long term (current) drug therapy
CPT/HCPCS: 36415; 80053; 80061; 80197; 81003; 82306; 82542; 82607; 83036; 84153; 84439; 84443; 85025

== ENCOUNTER → 2020-09-10 | Outpatient (CLI) | payer MEDICARE, MEDICAID | END | disposition home or self-care (01) | LOC: LAB 11:43 | PROVIDERS: ATTEND Internal Medicine Cardiovascular Disease | DX: E87.6 Hypokalemia (principal) | CPT/HCPCS: 36415; 84132 ==

== ENCOUNTER → 2021-04-20 | Outpatient (CLI) | payer MEDICARE, MEDICAID ==
[~2021-04-20] MED LIST changes: +IODIXANOL 320MG/ML 100ML BTL IV ONE
[2021-04-20 11:50] LABS: Urine Blood Negative /uL (Negative); Urine Specific Gravity 1.024 (1.001-1.035)
[2021-04-20 11:51] LABS: Basophils # (auto) 0 10 ^3/uL (0-0.2); Basophils % (auto) 0.5 % (0.0-2.0); Eosinophils # (auto) 0.3 10 ^3/uL (0-0.8); Eosinophils % (auto) 3.2 % (0.0-7.0); Hematocrit 45.3 % (41.0-53.0); Hemoglobin 15.2 g/dL (13.5-17.5); Lymphocytes # (auto) 2.2 10 ^3/uL (0.4-5.4); Lymphocytes % (auto) 27.1 % (10.0-50.0); Mean Corpuscular Hemoglobin 27.5 pg (28.0-32.0); Mean Corpuscular Hgb Conc. 33.6 g/dL (32.0-36.0); Monocytes # (auto) 0.6 10 ^3/uL (0-1.3); Monocytes % (auto) 7.7 % (0.0-12.0); Neutrophils # (auto) 4.9 10 ^3/uL (1.6-8.6); Neutrophils % (auto) 61.5 % (37.0-80.0); Nucleated Red Blood Cells % 0.1 %; Platelet Count (auto) 212 10^3/uL (140-450); Red Blood Cells 5.52 10^6/uL (4.5-5.90); Red Cell Distribution Width 14.2 % (11.8-14.3); White Blood Cell 7.9 10^3/uL (4.4-10.8)
[2021-04-20 12:29] LABS: Potassium 3.4 mmol/L (3.5-5.1)
[2021-04-20 12:40] LABS: Albumin 3.9 g/dL (3.4-5.0); BUN/Creatinine Ratio 17.1; Bilirubin, Total 0.6 mg/dL (0.2-1.0); Calcium 9.2 mg/dL (8.5-10.1); Total Protein 7.5 g/dL (6.4-8.2)
[2021-04-20 12:57] LABS: Free T4 (Free Thyroxine) 1.25 ng/dL (0.89-1.76); Prostate Specific Antigen 0.42 ng/mL (0.0-4.0)
== END | disposition home or self-care (01) ==
LOC: LAB 08:23
PROVIDERS: ATTEND Internal Medicine Cardiovascular Disease
DX: C61 Malignant neoplasm of prostate (principal); D51.3 Other dietary vitamin B12 deficiency anemia; E11.9 Type 2 diabetes mellitus without complications; E55.9 Vitamin D deficiency, unspecified; I10 Essential (primary) hypertension; D64.9 Anemia, unspecified; R00.2 Palpitations; R53.1 Weakness; R30.0 Dysuria
CPT/HCPCS: 36415; 80053; 80061; 81003; 82306; 82607; 83036; 84153; 84403; 84439; 84443; 85025; 87086; Q9967

== ENCOUNTER → 2021-06-03 | Outpatient (CLI) | payer MEDICARE, MEDICAID ==
[~2021-06-03] MED LIST changes: -IODIXANOL 320MG/ML 100ML BTL IV ONE
== END | disposition home or self-care (01) ==
LOC: Rad HDHVI 15:03
PROVIDERS: ATTEND Internal Medicine Cardiovascular Disease
DX: I10 Essential (primary) hypertension (principal)
CPT/HCPCS: 93306

== ENCOUNTER → 2021-08-17 | Outpatient (CLI) | payer MEDICARE, MEDICAID ==
[~2021-08-17] VITALS: Ht 165.1 cm; Wt 70.3 kg
[~2021-08-17] MED LIST changes: +ADENOSINE 59 MG in GIVE UN-DILUTED 0 ML IV ONE; +ADENOSINE 90 MG/30 ML INJ IV ONE
== END | disposition home or self-care (01) ==
LOC: Rad HDHVI 09:30
PROVIDERS: ATTEND Internal Medicine Cardiovascular Disease
DX: I42.0 Dilated cardiomyopathy (principal); R00.2 Palpitations; I10 Essential (primary) hypertension; E78.5 Hyperlipidemia, unspecified; Z79.810 Long term (current) use of selective estrogen receptor modulators (SERMs); Z94.1 Heart transplant status
CPT/HCPCS: 78452; 80197; 82542; 93005; 96374; 96375; A9500; J0153

== ENCOUNTER → 2022-01-08 | Outpatient (CLI) | payer MEDICARE, MEDICAID ==
[~2022-01-08] MED LIST changes: -ADENOSINE 59 MG in GIVE UN-DILUTED 0 ML IV ONE; -ADENOSINE 90 MG/30 ML INJ IV ONE
[2022-01-08 15:28] LABS: Urine Blood Negative /uL (Negative); Urine Specific Gravity 1.012 (1.001-1.035)
[2022-01-08 15:30] LABS: Basophils # (auto) 0.1 10 ^3/uL (0-0.2); Basophils % (auto) 0.9 % (0.0-2.0); Eosinophils # (auto) 0.2 10 ^3/uL (0-0.8); Eosinophils % (auto) 2.6 % (0.0-7.0); Hematocrit 48.2 % (41.0-53.0); Lymphocytes # (auto) 1.7 10 ^3/uL (0.4-5.4); Lymphocytes % (auto) 24.8 % (10.0-50.0); Mean Corpuscular Hemoglobin 26.7 pg (28.0-32.0); Mean Corpuscular Hgb Conc. 33.2 g/dL (32.0-36.0); Mean Corpuscular Volume 80.4 fL (80.0-100.0); Monocytes # (auto) 0.6 10 ^3/uL (0-1.3); Monocytes % (auto) 8.7 % (0.0-12.0); Neutrophils # (auto) 4.2 10 ^3/uL (1.6-8.6); Nucleated Red Blood Cells % 0.6 %; Red Blood Cells 5.99 10^6/uL (4.5-5.90); Red Cell Distribution Width 14.2 % (11.8-14.3); White Blood Cell 6.7 10^3/uL (4.4-10.8)
[2022-01-08 15:40] LABS: Free T4 (Free Thyroxine) 1.51 ng/dL (0.89-1.76); Prostate Specific Antigen 0.5 ng/mL (0.0-4.0)
[2022-01-08 16:15] LABS: Potassium 3.9 mmol/L (3.5-5.1)
[2022-01-08 16:23] LABS: Albumin 4.1 g/dL (3.4-5.0); BUN/Creatinine Ratio 11.9; Bilirubin, Total 1.8 mg/dL (0.2-1.0); Calcium 9.3 mg/dL (8.5-10.1); Total Protein 8.3 g/dL (6.4-8.2)
== END | disposition home or self-care (01) ==
LOC: Rad HDHVI 11:24
PROVIDERS: ATTEND Internal Medicine Cardiovascular Disease
DX: C61 Malignant neoplasm of prostate (principal); E11.9 Type 2 diabetes mellitus without complications; D51.3 Other dietary vitamin B12 deficiency anemia; E55.9 Vitamin D deficiency, unspecified; I10 Essential (primary) hypertension; R00.2 Palpitations; R53.1 Weakness; R30.0 Dysuria; D64.9 Anemia, unspecified; U09.9 Post COVID-19 condition, unspecified; M47.814 Spondylosis without myelopathy or radiculopathy, thoracic region
CPT/HCPCS: 36415; 71046; 80053; 80061; 81003; 82306; 82607; 83036; 84153; 84403; 84439; 84443; 85025

== ENCOUNTER → 2022-01-21 | Outpatient (CLI) | payer MEDICARE, MEDICAID ==
[~2022-01-21] VITALS: Ht 165.1 cm; Wt 71.7 kg
[~2022-01-21] MED LIST changes: +ADENOSINE 60 MG in GIVE UN-DILUTED 0 ML IV ONE; +ADENOSINE 90 MG/30 ML INJ IV ONE
== END | disposition home or self-care (01) ==
LOC: Rad HDHVI 13:16
PROVIDERS: ATTEND Internal Medicine Cardiovascular Disease
DX: Z51.81 Encounter for therapeutic drug level monitoring (principal); I11.0 Hypertensive heart disease with heart failure; I50.32 Chronic diastolic (congestive) heart failure; E72.89 Other specified disorders of amino-acid metabolism
CPT/HCPCS: 78452; 80197; 82542; 93005; 96374; 96375; A9500; J0153

== ENCOUNTER → 2022-06-24 | Outpatient (CLI) | payer MEDICARE, MEDICAID ==
[~2022-06-24] MED LIST changes: -ADENOSINE 60 MG in GIVE UN-DILUTED 0 ML IV ONE; -ADENOSINE 90 MG/30 ML INJ IV ONE
== END | disposition home or self-care (01) ==
LOC: Rad HDHVI 12:36
PROVIDERS: ATTEND Internal Medicine Cardiovascular Disease
DX: I51.7 Cardiomegaly (principal); R00.2 Palpitations; R06.02 Shortness of breath
CPT/HCPCS: 93306

== ENCOUNTER → 2022-06-29 | Outpatient (CLI) | payer MEDICARE, MEDICAID ==
[2022-06-29 12:19] LABS: Urine Blood Negative /uL (Negative); Urine Specific Gravity 1.012 (1.001-1.035)
[2022-06-29 12:21] LABS: Eosinophils # (auto) 0.3 10 ^3/uL (0-0.8); Lymphocytes # (auto) 2.2 10 ^3/uL (0.4-5.4); Monocytes # (auto) 0.6 10 ^3/uL (0-1.3); Red Blood Cells 6.04 10^6/uL (4.5-5.90); White Blood Cell 6.2 10^3/uL (4.4-10.8)
[2022-06-29 12:25] LABS: Basophils # (auto) 0 10 ^3/uL (0-0.2); Basophils % (auto) 0.7 % (0.0-2.0); Eosinophils % (auto) 5.1 % (0.0-7.0); Lymphocytes % (auto) 36.2 % (10.0-50.0); Mean Corpuscular Hemoglobin 26.5 pg (28.0-32.0); Mean Corpuscular Volume 82.8 fL (80.0-100.0); Monocytes % (auto) 9.4 % (0.0-12.0); Neutrophils % (auto) 48.6 % (37.0-80.0); Nucleated Red Blood Cells % 0.1 %; Red Cell Distribution Width 14.1 % (11.8-14.3)
[2022-06-29 12:28] LABS: Potassium 3.7 mmol/L (3.5-5.1)
[2022-06-29 12:29] LABS: Free T4 (Free Thyroxine) 1.3 ng/dL (0.89-1.76); Prostate Specific Antigen 0.39 ng/mL (0.0-4.0)
[2022-06-29 12:37] LABS: Albumin 3.9 g/dL (3.4-5.0); BUN/Creatinine Ratio 13.5; Bilirubin, Total 0.8 mg/dL (0.2-1.0); Total Protein 7.5 g/dL (6.4-8.2)
== END | disposition home or self-care (01) ==
LOC: LAB 08:10
PROVIDERS: ATTEND Internal Medicine Cardiovascular Disease
DX: D51.3 Other dietary vitamin B12 deficiency anemia (principal); D64.9 Anemia, unspecified; E11.9 Type 2 diabetes mellitus without complications; E55.9 Vitamin D deficiency, unspecified; I10 Essential (primary) hypertension; R00.2 Palpitations; R53.1 Weakness; R30.0 Dysuria; C61 Malignant neoplasm of prostate; Z51.81 Encounter for therapeutic drug level monitoring; Z79.899 Other long term (current) drug therapy
CPT/HCPCS: 36415; 80053; 80061; 81003; 82306; 82607; 83036; 84153; 84403; 84439; 84443; 85025

== ENCOUNTER 2022-07-14 03:14 | Emergency (ER) | payer MEDICARE, MEDICAID ==
[~2022-07-14] VITALS: Ht 165.1 cm; Wt 71.8 kg
[2022-07-14 03:49] LABS: Basophils # (auto) 0.1 10 ^3/uL (0-0.2); Basophils % (auto) 1.2 % (0.0-2.0); Eosinophils # (auto) 0.3 10 ^3/uL (0-0.8); Eosinophils % (auto) 4.3 % (0.0-7.0); Hematocrit 51.5 % (41.0-53.0); Hemoglobin 16.6 g/dL (13.5-17.5); Lymphocytes # (auto) 2.6 10 ^3/uL (0.4-5.4); Lymphocytes % (auto) 36.4 % (10.0-50.0); Mean Corpuscular Hemoglobin 26.6 pg (28.0-32.0); Mean Corpuscular Hgb Conc. 32.3 g/dL (32.0-36.0); Mean Corpuscular Volume 82.5 fL (80.0-100.0); Monocytes # (auto) 0.7 10 ^3/uL (0-1.3); Monocytes % (auto) 9.2 % (0.0-12.0); Neutrophils # (auto) 3.5 10 ^3/uL (1.6-8.6); Neutrophils % (auto) 48.9 % (37.0-80.0); Nucleated Red Blood Cells % 0.1 %; Red Blood Cells 6.25 10^6/uL (4.5-5.90); White Blood Cell 7.1 10^3/uL (4.4-10.8)
[2022-07-14 04:06] LABS: BUN/Creatinine Ratio 14.8; Calcium 8.9 mg/dL (8.5-10.1); Magnesium 1.7 mg/dL (1.6-2.6); Potassium 3.6 mmol/L (3.5-5.1)
[2022-07-14 04:09] LABS: Bilirubin, Total 0.9 mg/dL (0.2-1.0)
[2022-07-14 04:13] LABS: INR 1.01 (0.9-1.15)
[2022-07-14 06:00] VITALS: BP 112/76
== END 2022-07-14 06:09 | disposition home or self-care (01) ==
LOC: EDBD 03:14 → ER 03:14
DX: R00.2 Palpitations (principal); I11.0 Hypertensive heart disease with heart failure; I50.9 Heart failure, unspecified; I25.2 Old myocardial infarction; Z86.73 Personal history of transient ischemic attack (TIA), and cerebral infarction without residual deficits; Z20.822 Contact with and (suspected) exposure to COVID-19
CPT/HCPCS: 36415; 71045; 80053; 83735; 83880; 84484; 85025; 85610; 85730; 93005

== ENCOUNTER → 2023-03-02 | Outpatient (CLI) | payer MEDICARE, MEDICAID | END | disposition home or self-care (01) | LOC: Rad HDHVI 08:47 | PROVIDERS: ATTEND Internal Medicine Cardiovascular Disease | DX: I08.8 Other rheumatic multiple valve diseases (principal); R00.2 Palpitations; R06.02 Shortness of breath | CPT/HCPCS: 93306 ==

== ENCOUNTER → 2023-03-14 | Outpatient (CLI) | payer MEDICARE, MEDICAID ==
[~2023-03-14] VITALS: Ht 165.1 cm; Wt 71.7 kg
[~2023-03-14] MED LIST changes: +ADENOSINE 60 MG in GIVE UN-DILUTED 0 ML IV ONE; +ADENOSINE 90 MG/30 ML INJ IV ONE
== END | disposition home or self-care (01) ==
LOC: Rad HDHVI 12:42
PROVIDERS: ATTEND Internal Medicine Cardiovascular Disease
DX: I47.9 Paroxysmal tachycardia, unspecified (principal); R06.02 Shortness of breath; E78.00 Pure hypercholesterolemia, unspecified; I10 Essential (primary) hypertension; Z94.1 Heart transplant status
CPT/HCPCS: 78452; 93005; 96374; 96375; A9500; J0153

== ENCOUNTER → 2024-03-26 | Outpatient (CLI) | payer MEDICARE, MEDICAID ==
[~2024-03-26] VITALS: Ht 165.1 cm; Wt 71.2 kg
[~2024-03-26] MED LIST changes: -FENO134C PO; +FENO134C19 PO
== END | disposition home or self-care (01) ==
LOC: Rad HDHVI 08:24
PROVIDERS: ATTEND Internal Medicine Cardiovascular Disease
DX: I49.3 Ventricular premature depolarization (principal); I49.1 Atrial premature depolarization; I11.0 Hypertensive heart disease with heart failure; I50.43 Acute on chronic combined systolic (congestive) and diastolic (congestive) heart failure; R06.02 Shortness of breath; I47.9 Paroxysmal tachycardia, unspecified; E78.00 Pure hypercholesterolemia, unspecified; Z94.1 Heart transplant status
CPT/HCPCS: 78452; 93005; 96374; 96375; A9500; J0153

== ENCOUNTER 2025-05-20 08:40 | Outpatient (CLI) | payer MEDICARE, MEDICAID ==
[~2025-05-20 08:40] MED LIST changes: -ADENOSINE 60 MG in GIVE UN-DILUTED 0 ML IV ONE; -ADENOSINE 90 MG/30 ML INJ IV ONE; -TAMS0.4C36 PO; +TAMS0.4C39 PO
== END 2025-05-20 17:00 | disposition home or self-care (01) ==
LOC: Rad HDHVI 08:40
PROVIDERS: ATTEND Internal Medicine Cardiovascular Disease
DX: I11.0 Hypertensive heart disease with heart failure (principal); I50.33 Acute on chronic diastolic (congestive) heart failure
CPT/HCPCS: 93306

== ENCOUNTER → 2025-05-22 | Outpatient (CLI) | payer MEDICARE, MEDICAID | END | disposition home or self-care (01) | LOC: Rad HDHVI 10:16 | PROVIDERS: ATTEND Internal Medicine Cardiovascular Disease | DX: I70.8 Atherosclerosis of other arteries (principal); I11.0 Hypertensive heart disease with heart failure; I50.33 Acute on chronic diastolic (congestive) heart failure | CPT/HCPCS: 93880 ==

== ENCOUNTER 2025-06-03 09:38 | Outpatient (CLI) | payer MEDICARE, MEDICAID ==
[~2025-06-03] VITALS: Ht 165.1 cm; Wt 63.5 kg
[2025-06-03] MEDS ORDERED: ADENOSINE 53 MG in GIVE UN-DILUTED 0 ML IV ONE (12:15)
[2025-06-03] MEDS ORDERED: ADENOSINE 90 MG/30 ML INJ IV ONE (12:15)
== END 2025-06-03 17:00 | disposition home or self-care (01) ==
LOC: Rad HDHVI 09:38
PROVIDERS: ATTEND Internal Medicine Cardiovascular Disease
DX: I49.1 Atrial premature depolarization (principal); I49.3 Ventricular premature depolarization; I25.10 Atherosclerotic heart disease of native coronary artery without angina pectoris; I11.0 Hypertensive heart disease with heart failure; I50.33 Acute on chronic diastolic (congestive) heart failure; E78.00 Pure hypercholesterolemia, unspecified; R06.02 Shortness of breath; I42.0 Dilated cardiomyopathy; Z79.82 Long term (current) use of aspirin; Z94.1 Heart transplant status
CPT/HCPCS: 78452; 93017; A9500; J0153